=== PATIENT | female | born 1955 | race Caucasian/White ===

== ENCOUNTER 2016-06-26 12:30 | Inpatient (IN) | payer BC, OTHER ==
[~2016-06-26] VITALS: Ht 157.5 cm; Wt 79.3 kg
[2016-06-26] MEDS ORDERED: SODIUM CHLORIDE 0.9% 1,000 ML IVB ONE (14:32)
[2016-06-26 15:04] LABS: Hematocrit 40.4 % (36.0-46.0); Hemoglobin 13.4 g/dL (12.2-16.2); Mean Corpuscular Hemoglobin 27.3 pg (28.0-32.0); Mean Corpuscular Hgb Conc. 33.1 g/dL (32.0-36.0); Mean Corpuscular Volume 82.6 fL (80.0-100.0); Mean Platelet Volume 6.9 fL (7.4-10.4); Platelet Count (auto) 436 10^3/uL (140-450); Red Cell Distribution Width 16.3 % (11.6-16.0); SUSPECT VIEW TRANSMISSION; White Blood Cell 15.6 10^3/uL (4.4-10.8)
[2016-06-26 15:11] LABS: Metamyelocytes % 0; Myelocytes % 0; Promyelocytes % 0; Reactive Lymphocytes 0
[2016-06-26 15:19] LABS: Amylase 50 U/L (25-115); INR 0.95 (0.9-1.15); Partial Thromboplastin Time 27.4 sec (22.64-33.71); Prothrombin Time 10.3 sec (9.37-12.3)
[2016-06-26 15:27] LABS: Albumin 2.8 g/dL (3.4-5.0); BUN/Creatinine Ratio 19.8; Bilirubin, Total 0.4 mg/dL (0.2-1.0); Calcium 8.5 mg/dL (8.5-10.1); Magnesium 2.2 mg/dL (1.6-2.6); Potassium 3.5 mmol/L (3.5-5.1); Total Protein 6.7 g/dL (6.4-8.2)
[2016-06-26] MEDS ORDERED: MORPHINE SULF INJ 2 MG/ML SYRINGE 1ML IV ONE (15:30)
[2016-06-26] MEDS ORDERED: PROMETHAZINE HCL 25 MG/ML 1ML IV ONE (15:30)
[2016-06-26 15:43] LABS: Anisocytosis Slight; Platelet Estimate Adequate
[2016-06-26] MEDS ORDERED: metroNIDAZOLE 500MG/100ML 100 ML IV ONE (17:45)
[2016-06-26] MEDS ORDERED: NITROGLYCERIN 0.4 MG SL TAB SL PRN (17:45)
[2016-06-26] MEDS ORDERED: SODIUM CHLORIDE 0.9% 1,000 ML IV ONE (17:45)
[2016-06-26] MEDS ORDERED: MORPHINE SULF INJ 2 MG/ML SYRINGE 1ML IV PRN (17:45)
[2016-06-26] MEDS: ONDANSETRON HCL 4 MG/2 ML VIAL IV SCH (18:00)
[2016-06-26] MEDS: MORPHINE SULF INJ 2 MG/ML SYRINGE 1ML IV SCH (18:00)
[2016-06-26] MEDS: cefTRIAXone 1GM/50ML D5W 50 ML IV SCH (18:05)
[2016-06-26 21:15] VITALS: BP 117/67
[2016-06-26 22:00] VITALS: BP 117/67
[2016-06-27] MEDS: MORPHINE SULF INJ 2 MG/ML SYRINGE 1ML IV SCH ×3 (02:00→10:00)
[2016-06-27 05:00] VITALS: BP 110/65
[2016-06-27] MEDS: metroNIDAZOLE 500MG/100ML 100 ML IV SCH ×3 (05:07→21:43)
[2016-06-27] MEDS: ONDANSETRON HCL 4 MG/2 ML VIAL IV SCH ×4 (06:00→15:45)
[2016-06-27 07:37] LABS: Basophils # (auto) 0 uL; Basophils % (auto) 0.7 % (0.0-2.0); Eosinophils # (auto) 0.2 uL; Eosinophils % (auto) 3.2 % (0.0-7.0); Hematocrit 34.9 % (36.0-46.0); Hemoglobin 11.2 g/dL (12.2-16.2); Lymphocytes % (auto) 17.8 % (10.0-50.0); Mean Corpuscular Hemoglobin 27.1 pg (28.0-32.0); Mean Corpuscular Hgb Conc. 32.2 g/dL (32.0-36.0); Mean Corpuscular Volume 84.2 fL (80.0-100.0); Mean Platelet Volume 7.9 fL (7.4-10.4); Monocytes # (auto) 0.4 uL; Monocytes % (auto) 7.3 % (0.0-12.0); Neutrophils # (auto) 3.9 uL; Platelet Count (auto) 373 10^3/uL (140-450); Red Cell Distribution Width 16.5 % (11.6-16.0); White Blood Cell 5.5 10^3/uL (4.4-10.8)
[2016-06-27 08:00] VITALS: BP 122/66
[2016-06-27 08:36] LABS: Albumin 2.3 g/dL (3.4-5.0); BUN/Creatinine Ratio 20.7; Bilirubin, Total 0.4 mg/dL (0.2-1.0); Calcium 8.2 mg/dL (8.5-10.1); Potassium 3.3 mmol/L (3.5-5.1); Total Protein 5.7 g/dL (6.4-8.2)
[2016-06-27] MEDS: cefTRIAXone 1GM/50ML D5W 50 ML IV SCH (10:30)
[2016-06-27] MEDS: SOD CHL 0.45% 1,000 ML IV SCH (10:30)
[2016-06-27 13:00] VITALS: BP 125/60
[2016-06-27] MEDS ORDERED: HYDROmorphone HCL 2 MG/ML VL IV PRN (14:45)
[2016-06-27 17:00] VITALS: BP 158/81
[2016-06-27 20:00] VITALS: BP 116/69
[2016-06-27 22:00] VITALS: BP 116/69
[2016-06-28 04:58] LABS: Urine Bilirubin Negative (Negative); Urine Color Yellow (Yellow); Urine Glucose Normal (Normal); Urine Mucus FEW (None Seen); Urine Nitrite Negative (Negative); Urine RBC 158 /hpf (0 - 4); Urine Squamous Epithelial Cell FEW /hpf (<5); Urine Urobilinogen Normal (Negative); Urine pH 5.5 (5.0-8.0)
[2016-06-28 04:59] LABS: Urine Blood 2+ /uL (Negative); Urine Ketone 3+ (Negative)
[2016-06-28 05:00] VITALS: BP 127/69
[2016-06-28] MEDS: metroNIDAZOLE 500MG/100ML 100 ML IV SCH (05:15)
[2016-06-28] MEDS: SOD CHL 0.45% 1,000 ML IV SCH (06:00)
[2016-06-28] MEDS: ONDANSETRON HCL 4 MG/2 ML VIAL IV SCH ×2 (06:00)
[2016-06-28 06:15] LABS: Basophils # (auto) 0 uL; Basophils % (auto) 0.6 % (0.0-2.0); Eosinophils # (auto) 0.1 uL; Eosinophils % (auto) 1.6 % (0.0-7.0); Hematocrit 36.5 % (36.0-46.0); Hemoglobin 11.9 g/dL (12.2-16.2); Lymphocytes # (auto) 0.9 uL; Lymphocytes % (auto) 13.8 % (10.0-50.0); Mean Corpuscular Hemoglobin 27.5 pg (28.0-32.0); Mean Corpuscular Hgb Conc. 32.5 g/dL (32.0-36.0); Mean Corpuscular Volume 84.6 fL (80.0-100.0); Monocytes # (auto) 0.3 uL; Monocytes % (auto) 4.2 % (0.0-12.0); Neutrophils # (auto) 5.4 uL; Neutrophils % (auto) 79.8 % (37.0-80.0); Platelet Count (auto) 379 10^3/uL (140-450); Red Cell Distribution Width 16.1 % (11.6-16.0); White Blood Cell 6.8 10^3/uL (4.4-10.8)
[2016-06-28 06:40] LABS: Albumin 2.3 g/dL (3.4-5.0); BUN/Creatinine Ratio 17.4; Calcium 7.9 mg/dL (8.5-10.1)
[2016-06-28 06:43] LABS: Bilirubin, Total 0.5 mg/dL (0.2-1.0); Total Protein 5.8 g/dL (6.4-8.2)
[2016-06-28 06:44] LABS: Potassium 2.9 mmol/L (3.5-5.1)
[2016-06-28] MEDS ORDERED: POTASSIUM CHL 20 Meq TABLET PO ONE ×2 (07:15→07:30)
[2016-06-28 09:00] VITALS: BP 133/75
[2016-06-28] MEDS: cefTRIAXone 1GM/50ML D5W 50 ML IV SCH (10:00)
[2016-06-28 10:46] VITALS: BP 133/75
== END 2016-06-28 11:35 | disposition home or self-care (01) | DRG 386 ==
LOC: EDBD 12:30 → ER 12:30 → TELE 12:31 → TELE-WESTW 21:19
PROVIDERS: ADMIT Internal Medicine; ATTEND Internal Medicine
DX: K50.80 Crohn's disease of both small and large intestine without complications (principal); N13.2 Hydronephrosis with renal and ureteral calculous obstruction; E87.6 Hypokalemia; Z82.49 Family history of ischemic heart disease and other diseases of the circulatory system; Z87.442 Personal history of urinary calculi; Z90.49 Acquired absence of other specified parts of digestive tract; Z90.710 Acquired absence of both cervix and uterus; Z88.2 Allergy status to sulfonamides
CPT/HCPCS: 36415; 71010; 74176; 80053; 81001; 82150; 83690; 83735; 84484; 85007; 85025; 85027; 85610; 85730; 93005; 94761; 96361; 96365; 96375; J0696; J2405; J3490

== ENCOUNTER → 2018-02-19 | Outpatient (CLI) | payer OTHER ==
[2018-02-19 10:35] LABS: Basophils # (auto) 0.1 uL; Basophils % (auto) 0.5 % (0.0-2.0); Eosinophils # (auto) 0.1 uL; Eosinophils % (auto) 1.5 % (0.0-7.0); Hematocrit 41.5 % (36.0-46.0); Hemoglobin 13.4 g/dL (12.2-16.2); Lymphocytes # (auto) 1.1 uL; Lymphocytes % (auto) 11.7 % (10.0-50.0); Mean Corpuscular Hemoglobin 27.9 pg (28.0-32.0); Mean Corpuscular Hgb Conc. 32.3 g/dL (32.0-36.0); Mean Corpuscular Volume 86.2 fL (80.0-100.0); Monocytes # (auto) 0.7 uL; Monocytes % (auto) 7.1 % (0.0-12.0); Neutrophils # (auto) 7.5 uL; Neutrophils % (auto) 79.2 % (37.0-80.0); Nucleated Red Blood Cells % 0.1 %; Platelet Count (auto) 374 10^3/uL (140-450); Red Blood Cells 4.81 10^6/uL (4.0-5.20); Red Cell Distribution Width 15.8 % (11.8-14.3); White Blood Cell 9.5 10^3/uL (4.4-10.8)
[2018-02-19 11:39] LABS: Anion Gap 6 (5-15); Blood Urea Nitrogen 14 mg/dL (7-18); Carbon Dioxide 28 mmol/L (21-32); Chloride 109 mmol/L (98-107); Potassium 3.5 mmol/L (3.5-5.1); Sodium 143 mmol/L (136-145)
[2018-02-19 11:44] LABS: Alanine Aminotransferase 13 U/L (13-56); Albumin 2.3 g/dL (3.4-5.0); Alkaline Phosphatase 138 U/L (45-117); Aspartate Aminotransferase 9 U/L (15-37); BUN/Creatinine Ratio 21.2; Bilirubin, Total 0.4 mg/dL (0.2-1.0); GFR African American > 60 mL/min; GFR Non-African American > 60 mL/min; Glucose 135 mg/dL (74-106); Total Protein 6.2 g/dL (6.4-8.2)
== END | disposition home or self-care (01) ==
LOC: LAB 08:59
PROVIDERS: ATTEND Internal Medicine Gastroenterology
DX: R10.9 Unspecified abdominal pain (principal)
CPT/HCPCS: 36415; 80053; 85025

== ENCOUNTER 2018-03-05 14:31 | Inpatient (IN) | payer OTHER | END 2018-03-10 19:09 | disposition home or self-care (01) | LOC: ER 14:31 → OVERFLOW 23:23 → WEST WING 23:56 | DX: A41.9 Sepsis, unspecified organism (principal); N17.0 Acute kidney failure with tubular necrosis; N39.0 Urinary tract infection, site not specified; E44.0 Moderate protein-calorie malnutrition; E07.9 Disorder of thyroid, unspecified; E87.6 Hypokalemia; F10.20 Alcohol dependence, uncomplicated; I12.9 Hypertensive chronic kidney disease with stage 1 through stage 4 chronic kidney disease, or unspecified chronic kidney disease; N18.9 Chronic kidney disease, unspecified; Z82.49 Family history of ischemic heart disease and other diseases of the circulatory system; Z87.442 Personal history of urinary calculi; E88.09 Other disorders of plasma-protein metabolism, not elsewhere classified; E86.0 Dehydration ==

== ENCOUNTER → 2018-03-27 | Outpatient (CLI) | payer OTHER ==
[~2018-03-27] MED LIST: PROBCAP12 OR; SACC1CAP3 PO
== END | disposition home or self-care (01) ==
LOC: LAB 09:24
PROVIDERS: ATTEND Internal Medicine Gastroenterology
CPT/HCPCS: 36415; 82565; 84520

== ENCOUNTER → 2018-04-16 | Outpatient (CLI) | payer OTHER ==
[2018-04-16 08:06] LABS: Basophils # (auto) 0.1 uL; Basophils % (auto) 0.5 % (0.0-2.0); Eosinophils # (auto) 0.1 uL; Eosinophils % (auto) 0.9 % (0.0-7.0); Hemoglobin 13.1 g/dL (12.2-16.2); Lymphocytes # (auto) 1.3 uL; Lymphocytes % (auto) 11.6 % (10.0-50.0); Mean Corpuscular Hemoglobin 28.2 pg (28.0-32.0); Mean Corpuscular Hgb Conc. 31.9 g/dL (32.0-36.0); Mean Corpuscular Volume 88.5 fL (80.0-100.0); Monocytes # (auto) 0.7 uL; Monocytes % (auto) 6.1 % (0.0-12.0); Neutrophils # (auto) 8.7 uL; Neutrophils % (auto) 80.9 % (37.0-80.0); Platelet Count (auto) 314 10^3/uL (140-450); Red Blood Cells 4.64 10^6/uL (4.0-5.20); Red Cell Distribution Width 17.1 % (11.8-14.3); White Blood Cell 10.8 10^3/uL (4.4-10.8)
== END | disposition home or self-care (01) ==
LOC: LAB 07:52
PROVIDERS: ATTEND Internal Medicine Gastroenterology
DX: K50.80 Crohn's disease of both small and large intestine without complications (principal)
CPT/HCPCS: 36415; 85025

== ENCOUNTER → 2018-05-07 | Outpatient (CLI) | payer OTHER ==
[2018-05-07 08:34] LABS: Basophils # (auto) 0.1 uL; Basophils % (auto) 0.9 % (0.0-2.0); Eosinophils # (auto) 0.1 uL; Eosinophils % (auto) 1.8 % (0.0-7.0); Hematocrit 40.2 % (36.0-46.0); Hemoglobin 13.1 g/dL (12.2-16.2); Lymphocytes # (auto) 1.2 uL; Lymphocytes % (auto) 17.2 % (10.0-50.0); Mean Corpuscular Hemoglobin 28.2 pg (28.0-32.0); Mean Corpuscular Hgb Conc. 32.6 g/dL (32.0-36.0); Mean Corpuscular Volume 86.6 fL (80.0-100.0); Monocytes # (auto) 0.5 uL; Monocytes % (auto) 7.4 % (0.0-12.0); Neutrophils # (auto) 5.1 uL; Neutrophils % (auto) 72.7 % (37.0-80.0); Platelet Count (auto) 381 10^3/uL (140-450); Red Blood Cells 4.64 10^6/uL (4.0-5.20); Red Cell Distribution Width 15.4 % (11.8-14.3)
[2018-05-07 08:41] LABS: Albumin 2.8 g/dL (3.4-5.0); Calcium 8.8 mg/dL (8.5-10.1); Potassium 3.3 mmol/L (3.5-5.1)
[2018-05-07 08:49] LABS: Bilirubin, Total 0.4 mg/dL (0.2-1.0); Total Protein 6.5 g/dL (6.4-8.2)
== END | disposition home or self-care (01) ==
LOC: LAB 07:52
PROVIDERS: ATTEND Internal Medicine
DX: Z00.00 Encounter for general adult medical examination without abnormal findings (principal); K50.90 Crohn's disease, unspecified, without complications
CPT/HCPCS: 36415; 80053; 80061; 82306; 84443; 85025; 85652

== ENCOUNTER → 2018-05-18 | Outpatient (CLI) | payer OTHER ==
[2018-05-18 10:09] LABS: Free T4 (Free Thyroxine) 2.08 ng/dL (0.89-1.76); T3 Total 1.21 ng/mL (0.60-1.81)
[2018-05-18 10:10] LABS: Free T3 3.71 pg/mL (2.3-4.2)
== END | disposition home or self-care (01) ==
LOC: LAB 08:49
PROVIDERS: ATTEND Internal Medicine
DX: E03.9 Hypothyroidism, unspecified (principal); E05.90 Thyrotoxicosis, unspecified without thyrotoxic crisis or storm
CPT/HCPCS: 36415; 84439; 84443; 84480; 84481

== ENCOUNTER → 2018-06-08 | Outpatient (CLI) | payer OTHER ==
[~2018-06-08] MED LIST changes: +CHOL20007 PO; +MULT-228 PO; +USTE1INJ SC
[2018-06-08 11:39] LABS: Basophils # (auto) 0 uL; Basophils % (auto) 0.2 % (0.0-2.0); Eosinophils # (auto) 0 uL; Eosinophils % (auto) 0.3 % (0.0-7.0); Hematocrit 37.6 % (36.0-46.0); Hemoglobin 12.3 g/dL (12.2-16.2); Lymphocytes # (auto) 0.6 uL; Lymphocytes % (auto) 5.7 % (10.0-50.0); Mean Corpuscular Hemoglobin 27.8 pg (28.0-32.0); Mean Corpuscular Hgb Conc. 32.7 g/dL (32.0-36.0); Monocytes # (auto) 0.1 uL; Monocytes % (auto) 1.3 % (0.0-12.0); Neutrophils # (auto) 9.7 uL; Neutrophils % (auto) 92.5 % (37.0-80.0); Nucleated Red Blood Cells % 0.1 %; Platelet Count (auto) 447 10^3/uL (140-450); Red Blood Cells 4.43 10^6/uL (4.0-5.20); Red Cell Distribution Width 14.7 % (11.8-14.3); White Blood Cell 10.5 10^3/uL (4.4-10.8)
[2018-06-11 14:24] LABS: Free T4 (Free Thyroxine) 2.17 ng/dL (0.89-1.76)
[2018-06-11 14:25] LABS: T3 Total 0.82 ng/mL (0.60-1.81)
== END | disposition home or self-care (01) ==
LOC: LAB 10:33
PROVIDERS: ATTEND Internal Medicine
DX: K50.80 Crohn's disease of both small and large intestine without complications (principal); E05.90 Thyrotoxicosis, unspecified without thyrotoxic crisis or storm
CPT/HCPCS: 36415; 84439; 84443; 84480; 85025

== ENCOUNTER → 2018-06-13 | Outpatient (CLI) | payer OTHER | END | disposition home or self-care (01) | LOC: LAB 09:33 | PROVIDERS: ATTEND Internal Medicine Gastroenterology | DX: K50.80 Crohn's disease of both small and large intestine without complications (principal) | CPT/HCPCS: 82705 ==

== ENCOUNTER → 2018-08-31 | Day surgery (SDC) | payer OTHER ==
[2018-08-28 14:05] LABS: Basophils # (auto) 0 uL; Basophils % (auto) 0.2 % (0.0-2.0); Eosinophils # (auto) 0.3 uL; Eosinophils % (auto) 2.7 % (0.0-7.0); Hematocrit 38.7 % (36.0-46.0); Hemoglobin 12.6 g/dL (12.2-16.2); Lymphocytes # (auto) 1.5 uL; Lymphocytes % (auto) 14.7 % (10.0-50.0); Mean Corpuscular Hemoglobin 26.7 pg (28.0-32.0); Mean Corpuscular Hgb Conc. 32.7 g/dL (32.0-36.0); Mean Corpuscular Volume 81.9 fL (80.0-100.0); Monocytes # (auto) 0.7 uL; Monocytes % (auto) 7.2 % (0.0-12.0); Neutrophils # (auto) 7.4 uL; Neutrophils % (auto) 75.2 % (37.0-80.0); Platelet Count (auto) 390 10^3/uL (140-450); Red Blood Cells 4.73 10^6/uL (4.0-5.20); Red Cell Distribution Width 16.5 % (11.8-14.3); White Blood Cell 9.9 10^3/uL (4.4-10.8)
[2018-08-28 14:43] LABS: INR 0.97 (0.9-1.15); Partial Thromboplastin Time 27.4 sec (23.64-32.05)
[~2018-08-31] VITALS: Ht 157.5 cm; Wt 80.3 kg
[~2018-08-31] MED LIST changes: +POTA99TA3 PO; -PROBCAP12 OR; -SACC1CAP3 PO; +SODIUM CHLORIDE LOCK 10 ML ONE; +diphenhdrAMINE HCL 50 MG/1 ML VL ONE
[2018-08-31] MEDS: fentaNYL CITRATE 100 MCG/2 ML VL ONE ×2 (11:33→11:38)
[2018-08-31] MEDS: MIDAZOLAM HCL 5 MG/ML-1ML VIAL ONE ×2 (11:33→11:38)
[2018-08-31 12:29] VITALS: BP 128/69
== END | disposition home or self-care (01) ==
LOC: GI 09:30
PROVIDERS: ATTEND Internal Medicine Gastroenterology
DX: K63.89 Other specified diseases of intestine (principal); K50.80 Crohn's disease of both small and large intestine without complications; Z88.8 Allergy status to other drugs, medicaments and biological substances; Z88.2 Allergy status to sulfonamides; Z79.899 Other long term (current) drug therapy; Z98.890 Other specified postprocedural states; Z90.710 Acquired absence of both cervix and uterus; Z90.49 Acquired absence of other specified parts of digestive tract
CPT/HCPCS: 36415; 45380; 85025; 85610; 85730; 88305; J1200; J2250; J3010; J7030; 99152

== ENCOUNTER → 2018-09-10 | Outpatient (CLI) | payer OTHER ==
[~2018-09-10] MED LIST changes: -SODIUM CHLORIDE LOCK 10 ML ONE; -diphenhdrAMINE HCL 50 MG/1 ML VL ONE
[2018-09-10 09:45] LABS: Free T4 (Free Thyroxine) 1.8 ng/dL (0.89-1.76)
[2018-09-10 09:46] LABS: Free T3 3.07 pg/mL (2.3-4.2); T3 Total 1.32 ng/mL (0.60-1.81)
== END | disposition home or self-care (01) ==
LOC: LAB 07:16
PROVIDERS: ATTEND Internal Medicine
DX: E05.90 Thyrotoxicosis, unspecified without thyrotoxic crisis or storm (principal)
CPT/HCPCS: 36415; 84439; 84443; 84480; 84481

== ENCOUNTER → 2019-01-14 | Outpatient (CLI) | payer OTHER ==
[~2019-01-14] VITALS: Ht 157.5 cm; Wt 79.4 kg
[~2019-01-14] MED LIST changes: +ACE325T PO; -CHOL20007 PO; +LISI-275 PO; -MULT-228 PO; +ONDA-144 PO; +PANT40T PO; +POTA10TA51 PO; -POTA99TA3 PO; +PRE5T PO; -USTE1INJ SC
== END | disposition home or self-care (01) ==
LOC: Rad HDHVI 08:02
PROVIDERS: ATTEND Internal Medicine Cardiovascular Disease
DX: I08.1 Rheumatic disorders of both mitral and tricuspid valves (principal); I27.20 Pulmonary hypertension, unspecified; I20.0 Unstable angina; R06.02 Shortness of breath; R07.89 Other chest pain; I10 Essential (primary) hypertension
CPT/HCPCS: 78452; 93017; 93306; 96374; A9500

== ENCOUNTER → 2019-03-20 | Outpatient (CLI) | payer OTHER ==
[~2019-03-20] MED LIST changes: -ACE325T PO; +CALC600T80 PO; +CIP500T PO; +CLIN-188 PO; +CYAN1TAB14 PO; +FOLI1TAB6 PO; +HYOS0.1250 PO; +METH4TAB PO; +POTA-220 PO; -POTA10TA51 PO; -PRE5T PO; +[UNRECOGNIZED DRUG - CODE] PO
[2019-03-20 09:09] LABS: Basophils # (auto) 0.1 uL; Basophils % (auto) 0.7 % (0.0-2.0); Eosinophils # (auto) 0.2 uL; Eosinophils % (auto) 2.8 % (0.0-7.0); Hematocrit 38.8 % (36.0-46.0); Hemoglobin 12.6 g/dL (12.2-16.2); Lymphocytes # (auto) 1.2 uL; Lymphocytes % (auto) 15.4 % (10.0-50.0); Mean Corpuscular Hemoglobin 27.5 pg (28.0-32.0); Mean Corpuscular Hgb Conc. 32.5 g/dL (32.0-36.0); Mean Corpuscular Volume 84.7 fL (80.0-100.0); Monocytes # (auto) 0.4 uL; Monocytes % (auto) 5.5 % (0.0-12.0); Neutrophils # (auto) 5.6 uL; Neutrophils % (auto) 75.6 % (37.0-80.0); Platelet Count (auto) 310 10^3/uL (140-450); Red Blood Cells 4.58 10^6/uL (4.0-5.20); Red Cell Distribution Width 15.8 % (11.8-14.3); White Blood Cell 7.5 10^3/uL (4.4-10.8)
== END | disposition home or self-care (01) ==
LOC: LAB 08:39
PROVIDERS: ATTEND Internal Medicine Gastroenterology
DX: K50.80 Crohn's disease of both small and large intestine without complications (principal)
CPT/HCPCS: 36415; 85025

== ENCOUNTER → 2019-04-19 | Outpatient (CLI) | payer OTHER ==
[2019-04-19 11:02] LABS: Potassium 2.8 mmol/L (3.5-5.1)
== END | disposition home or self-care (01) ==
LOC: LAB 10:15
PROVIDERS: ATTEND Internal Medicine
DX: E87.6 Hypokalemia (principal)
CPT/HCPCS: 36415; 80051

== ENCOUNTER 2019-04-20 12:32 | Emergency (ER) | payer OTHER ==
[~2019-04-20] VITALS: Ht 157.5 cm; Wt 77.1 kg
[2019-04-20 13:22] VITALS: BP 150/69
[2019-04-20] MEDS ORDERED: KETOROLAC TROMETH 60MG/2ML VIAL IM ONE (15:15)
== END 2019-04-20 15:46 | disposition home or self-care (01) ==
LOC: ER 12:40
DX: S70.12XA Contusion of left thigh, initial encounter (principal); J45.909 Unspecified asthma, uncomplicated; I10 Essential (primary) hypertension; Z88.2 Allergy status to sulfonamides; Z88.6 Allergy status to analgesic agent; Z79.899 Other long term (current) drug therapy; Z87.442 Personal history of urinary calculi; Z90.49 Acquired absence of other specified parts of digestive tract; Z90.710 Acquired absence of both cervix and uterus; Z98.890 Other specified postprocedural states; W18.39XA Other fall on same level, initial encounter; Y93.89 Activity, other specified; Y92.89 Other specified places as the place of occurrence of the external cause; Y99.8 Other external cause status
CPT/HCPCS: 93971; 96372; 99284; J1885

== ENCOUNTER → 2019-06-12 | Outpatient (CLI) | payer OTHER ==
[2019-06-12 10:32] LABS: Basophils # (auto) 0.1 10 ^3/uL (0-0.2); Eosinophils # (auto) 0.1 10 ^3/uL (0-0.8); Eosinophils % (auto) 1.1 % (0.0-7.0); Hematocrit 37.2 % (36.0-46.0); Lymphocytes # (auto) 0.9 10 ^3/uL (0.4-5.4); Mean Corpuscular Hgb Conc. 32.2 g/dL (32.0-36.0); Mean Corpuscular Volume 86.9 fL (80.0-100.0); Monocytes # (auto) 0.4 10 ^3/uL (0-1.3); Monocytes % (auto) 4.1 % (0.0-12.0); Neutrophils # (auto) 8.5 10 ^3/uL (1.6-8.6); Neutrophils % (auto) 84.8 % (37.0-80.0); Nucleated Red Blood Cells % 0.1 %; Platelet Count (auto) 353 10^3/uL (140-450); Red Blood Cells 4.28 10^6/uL (4.0-5.20); Red Cell Distribution Width 16.3 % (11.8-14.3)
[2019-06-12 10:54] LABS: Calcium 8.5 mg/dL (8.5-10.1); Potassium 4.2 mmol/L (3.5-5.1)
[2019-06-12 11:00] LABS: Albumin 2.8 g/dL (3.4-5.0); Bilirubin, Total 0.3 mg/dL (0.2-1.0); Total Protein 6.7 g/dL (6.4-8.2)
== END | disposition home or self-care (01) ==
LOC: LAB 10:07
PROVIDERS: ATTEND Internal Medicine Gastroenterology
DX: K50.90 Crohn's disease, unspecified, without complications (principal)
CPT/HCPCS: 36415; 80053; 85025

== ENCOUNTER 2019-07-30 07:44 | Inpatient (IN) | payer OTHER ==
[~2019-07-30] VITALS: Ht 157.5 cm; Wt 79.8 kg
[~2019-07-30 07:44] MED LIST changes: +[UNRECOGNIZED DRUG - CODE] PO; -[UNRECOGNIZED DRUG - CODE] PO
[2019-07-30] MEDS ORDERED: SODIUM CHLORIDE 0.9% 500 ML IVB ONE (07:58)
[2019-07-30] MEDS ORDERED: PANTOPRAZOLE 40 MG/10 ML VIAL INJ IV STA (07:58)
[2019-07-30] MEDS ORDERED: methylPREDNISolone SOD SUCC 125 MG/2 ML VL IV ONE (08:00)
[2019-07-30] MEDS ORDERED: MORPHINE SULFATE 4 MG/ML SYR/VIAL IV ONE (08:00)
[2019-07-30] MEDS ORDERED: ONDANSETRON HCL 4 MG/2 ML VIAL IV ONE (08:00)
[2019-07-30 08:44] LABS: Basophils # (auto) 0 10 ^3/uL (0-0.2); Basophils % (auto) 0.5 % (0.0-2.0); Eosinophils # (auto) 0 10 ^3/uL (0-0.8); Eosinophils % (auto) 0.5 % (0.0-7.0); Hematocrit 40.4 % (36.0-46.0); Hemoglobin 13.1 g/dL (12.2-16.2); Lymphocytes # (auto) 0.9 10 ^3/uL (0.4-5.4); Mean Corpuscular Hgb Conc. 32.3 g/dL (32.0-36.0); Mean Corpuscular Volume 83.4 fL (80.0-100.0); Monocytes # (auto) 0.6 10 ^3/uL (0-1.3); Monocytes % (auto) 6.2 % (0.0-12.0); Neutrophils # (auto) 7.6 10 ^3/uL (1.6-8.6); Neutrophils % (auto) 82.8 % (37.0-80.0); Platelet Count (auto) 419 10^3/uL (140-450); Red Blood Cells 4.85 10^6/uL (4.0-5.20); Red Cell Distribution Width 16.1 % (11.8-14.3); White Blood Cell 9.2 10^3/uL (4.4-10.8)
[2019-07-30 08:58] LABS: Albumin 2.7 g/dL (3.4-5.0); BUN/Creatinine Ratio 28.1; Calcium 8.1 mg/dL (8.5-10.1); Potassium 3.3 mmol/L (3.5-5.1)
[2019-07-30 09:00] LABS: Bilirubin, Total 0.6 mg/dL (0.2-1.0); Total Protein 6.9 g/dL (6.4-8.2)
[2019-07-30] MEDS ORDERED: MORPHINE SULF INJ 2 MG/ML SYRINGE 1ML IV PRN ×2 (12:00)
[2019-07-30] MEDS ORDERED: NITROGLYCERIN 0.4 MG SL TAB SL PRN (12:00)
[2019-07-30] MEDS ORDERED: ONDANSETRON HCL 4 MG/2 ML VIAL IV PRN (12:00)
[2019-07-30 13:52] LABS: Urine Bacteria NONE SEEN /hpf (None Seen); Urine Blood Negative /uL (Negative); Urine Mucus FEW (None Seen); Urine Specific Gravity 1.025 (1.001-1.035); Urine WBC 2 /hpf (0 - 5)
--- NOTE | 2019-07-30 14:25 | NUR ---
M/S admit from ER JUAN J WELLS admitted to Telemetry unit, no SBAR received. Patient oriented to FATOU HENDERSON RN primary RN, unit, room, bed, and unit policies regarding patient care. Patient is on room air, respirations even and unlabored. Patient denies pain at this time. Patient is awake, alert and oriented x4. No signs or symptoms of distress noted at this time. Reviewed plan of care with patient, patient verbalized understanding. Bed in low and locked position, call light within reach. Will continue to monitor Q1 hour and PRN.
--- NOTE | 2019-07-30 14:50 | NUR ---
Patient ambulated Patient ambulated to restroom unassisted. Will continue to monitor Q1 hour and PRN.
[2019-07-30] MEDS: D5W/SOD CHL 0.45%/KCL 20MEQ 1,000 ML IV SCH ×2 (16:10→22:00)
--- NOTE | 2019-07-30 16:30 | NUR ---
Dr. Jessica Wynn at station New orders received for small bowel series tomorrow morning. Will place new orders, will continue to monitor Q1 hour and PRN.
[2019-07-30 17:00] VITALS: BP 126/73
--- NOTE | 2019-07-30 18:43 | NUR ---
IV Removed IV removed with clean sterile technique from left forearm, catheter fully intact. Pressure dressing applied to site. Patient tolerated well. Patient provided ice pack. Will continue to monitor Q1 hour and PRN.
--- NOTE | 2019-07-30 19:05 | NUR ---
Closing Note Report given to rn night RN. No signs or symptoms of distress noted at this time.
--- NOTE | 2019-07-30 19:11 | NUR ---
Opening Shift Note Assumed care of patient after receiving report from day RN. Patient awake and alert with no S/S of distress/SOB or pain. Call light within reach, bed in lowest position x2 side rails, HOB semi fowlers. Instructed on POC and to call for assist PRN, will continue to monitor for changes Q1hr and PRN.
[2019-07-30 22:00] VITALS: BP 119/68
[2019-07-30] MEDS: methylPREDNISolone SOD SUCC 40 MG/ML VL IV SCH (22:00)
--- NOTE | 2019-07-30 22:00 | NUR ---
IV insertion IV access obtained, via clean sterile technique by inserting 22 gauge catheter at left forearm after 2 attempt(s). IV secured properly. No trauma to site. Patient tolerated well.
[2019-07-31 05:00] VITALS: BP 100/52
[2019-07-31 06:40] LABS: Basophils # (auto) 0 10 ^3/uL (0-0.2); Basophils % (auto) 0.4 % (0.0-2.0); Eosinophils # (auto) 0 10 ^3/uL (0-0.8); Hematocrit 36.3 % (36.0-46.0); Hemoglobin 11.6 g/dL (12.2-16.2); Lymphocytes # (auto) 0.5 10 ^3/uL (0.4-5.4); Lymphocytes % (auto) 7.4 % (10.0-50.0); Mean Corpuscular Hemoglobin 26.5 pg (28.0-32.0); Mean Corpuscular Hgb Conc. 31.9 g/dL (32.0-36.0); Mean Corpuscular Volume 83.1 fL (80.0-100.0); Monocytes # (auto) 0.1 10 ^3/uL (0-1.3); Monocytes % (auto) 2.3 % (0.0-12.0); Neutrophils # (auto) 5.6 10 ^3/uL (1.6-8.6); Neutrophils % (auto) 89.9 % (37.0-80.0); Platelet Count (auto) 368 10^3/uL (140-450); Red Blood Cells 4.36 10^6/uL (4.0-5.20); Red Cell Distribution Width 15.7 % (11.8-14.3); White Blood Cell 6.2 10^3/uL (4.4-10.8)
[2019-07-31 06:46] LABS: Potassium 3.5 mmol/L (3.5-5.1)
--- NOTE | 2019-07-31 07:12 | NUR ---
OPENING SHIFT NOTE Assumed care of patient from date night sitter RN. Patient is alert and oriented x4, no signs of distress noted. Patient was updated on the plan of care and verbalized understanding. Bed is locked, in the lowest position, side rails up x2, and call light is in reach. Patient was encouraged to call for assistance as needed.
[2019-07-31 07:17] LABS: Albumin 2.3 g/dL (3.4-5.0); BUN/Creatinine Ratio 19.6; Bilirubin, Total 0.4 mg/dL (0.2-1.0); Calcium 8.2 mg/dL (8.5-10.1); Magnesium 2.1 mg/dL (1.6-2.6); Total Protein 5.8 g/dL (6.4-8.2)
[2019-07-31] MEDS ORDERED: GASTROGRAFIN 120 ML SOL ONE (07:24)
[2019-07-31] MEDS: D5W/SOD CHL 0.45%/KCL 20MEQ 1,000 ML IV SCH ×2 (08:00→15:25)
[2019-07-31 09:00] VITALS: BP 110/58
--- NOTE | 2019-07-31 09:31 | NUR ---
PATIENT COMPLAINING OF PAIN AT IV SITE Attempted to flush with NS and patient complaining of pain. This RN, Helen, CHERYL, and charge nurse Jillian attempted to start IV with no success. Will input midline order and page PICC nurse.
--- NOTE | 2019-07-31 11:51 | NUR ---
MINE AT BEDSIDE Updated on patient status, plan of care was discussed with the patient and she verbalized understanding. No new orders received.
--- NOTE | 2019-07-31 12:16 | NUR ---
PICC NURSE PAGED To see when she would be able to obtain IV access, awaiting call back.
--- NOTE | 2019-07-31 12:41 | NUR ---
PICC RN AT BEDSIDE
[2019-07-31] MEDS: ENTOCORT 3 MG PO SCH (12:42)
[2019-07-31] MEDS: LISINOPRIL 5 MG TAB PO SCH (12:42)
[2019-07-31 13:00] VITALS: BP 137/74
[2019-07-31] MEDS: levoFLOXacin 500MG 100 ML IV SCH (13:31)
[2019-07-31] MEDS: PANTOPRAZOLE 40 MG/10 ML VIAL INJ IV SCH (13:32)
[2019-07-31] MEDS: methylPREDNISolone SOD SUCC 40 MG/ML VL IV SCH ×2 (13:32→21:20)
[2019-07-31] MEDS ORDERED: LISI-648 PO (14:09)
[2019-07-31] MEDS ORDERED: POTA-220 PO (14:13)
[2019-07-31] MEDS ORDERED: USTE1INJ IV (14:15)
[2019-07-31] MEDS ORDERED: CHOL100029 PO (14:17)
[2019-07-31] MEDS ORDERED: AZAT50TA6 PO (14:20)
[2019-07-31] MEDS ORDERED: CALC600T80 PO (14:22)
--- NOTE | 2019-07-31 15:43 | NUR ---
Segundo KENDRICK AT BEDSIDE updated on patient status, plan of care discussed with patient and she verbalized understanding. Per MD patient will be advanced to full liquid for dinner, puree diet tomorrow and possible DC tomorrow.
[2019-07-31 17:00] VITALS: BP 114/68
--- NOTE | 2019-07-31 19:18 | NUR ---
Opening Shift Note Assumed care of patient, awake and alert x 4. No S/S of distress/SOB or pain.Bed is in lowest position and locked. Call light within reach. Board updated. Instructed on POC and to call for assist PRN, will continue to monitor for changes Q1hr and PRN.
[2019-07-31 21:59] VITALS: BP 121/76
--- NOTE | 2019-07-31 22:03 | NUR ---
Paging hospitalist to request medication to help the patient sleep. She has been sleeping 3-4 hours the past two nights and cannot sleep with hospital environment.
--- NOTE | 2019-08-01 00:36 | NUR ---
Pagestephan hospitalist regarding positive blood culture (gram positive cocci in clusters). Addendum: 08/01/19 at 0037 by SYLVIA AGUILA RN Wrong patient. Disregard.
[2019-08-01] MEDS ORDERED: TEMAZEPAM 15 MG CAP PO ONE (01:15)
--- NOTE | 2019-08-01 01:22 | NUR ---
Spoke to RAIN Valencia. Order received: Temazepam 15 mg PO Once. Order repeated, verified, and placed.
[2019-08-01] MEDS: D5W/SOD CHL 0.45%/KCL 20MEQ 1,000 ML IV SCH ×2 (04:08→14:00)
[2019-08-01 05:00] VITALS: BP 124/57
--- NOTE | 2019-08-01 07:30 | NUR ---
OPENING SHIFT NOTE Assumed care of patient from maintenance supervisor 2nd shift RN. Patient is alert and oriented x4, no signs of distress noted. Patient was updated on the plan of care and verbalized understanding. Bed is locked, in the lowest position, side rails up x2, and call light is in reach. Patient was encouraged to call for assistance as needed.
[2019-08-01 08:50] VITALS: BP 130/75
--- NOTE | 2019-08-01 09:33 | NUR ---
MINE AT BEDSIDE updated on the patient status. patient was updated on the plan of care and verbalized understanding. Per MD patient is to be discharged today.
[2019-08-01] MEDS: ENTOCORT 3 MG PO SCH (10:00)
[2019-08-01] MEDS: levoFLOXacin 500MG 100 ML IV SCH (10:16)
[2019-08-01] MEDS: methylPREDNISolone SOD SUCC 40 MG/ML VL IV SCH (10:16)
[2019-08-01] MEDS: PANTOPRAZOLE 40 MG/10 ML VIAL INJ IV SCH (10:16)
[2019-08-01] MEDS: LISINOPRIL 5 MG TAB PO SCH (10:17)
--- NOTE | 2019-08-01 12:14 | NUR ---
IV insertion IV access obtained, via clean sterile technique by inserting 20 gauge catheter at left AC after 1 attempt. IV secured properly. No trauma to site. Patient tolerated well. IV to the right AC was discontinued with clean sterile technique and pressure dressing applied.
[2019-08-01 12:33] VITALS: BP 144/81
[2019-08-01 12:38] VITALS: BP 144/81
--- NOTE | 2019-08-01 16:00 | NUR ---
DISCHARGE Discharge instructions given as ordered. Encourage to follow up with PMD as instructed. All questions and concerns addressed. Patient verbalized understanding. Medication reconciliation form completed and copy given to patient. IV removed with catheter intact, pressure dressing applied. Patient taken to vehicle via wheelchair with all personal belongings, accompanied by staff. No distress noted at time of departure.
== END 2019-08-01 16:00 | disposition home or self-care (01) | DRG 386 ==
LOC: ER 07:44 → OVERFLOW 07:45 → CENTRAL 14:25
PROVIDERS: ADMIT Nurse Practitioner Acute Care; ATTEND Family Medicine
DX: K50.012 Crohn's disease of small intestine with intestinal obstruction (principal); K56.690 Other partial intestinal obstruction; E87.6 Hypokalemia; J45.909 Unspecified asthma, uncomplicated; I10 Essential (primary) hypertension; E78.5 Hyperlipidemia, unspecified; M51.37 Other intervertebral disc degeneration, lumbosacral region; Z79.51 Long term (current) use of inhaled steroids; Z79.899 Other long term (current) drug therapy; N20.0 Calculus of kidney; Z82.49 Family history of ischemic heart disease and other diseases of the circulatory system; Z87.442 Personal history of urinary calculi; Z90.49 Acquired absence of other specified parts of digestive tract; Z90.710 Acquired absence of both cervix and uterus; Z83.3 Family history of diabetes mellitus; Z88.2 Allergy status to sulfonamides
CPT/HCPCS: 36415; 74176; 74250; 80053; 81001; 83690; 83735; 85025; 93005; 96361; 96374; 96375; 96376; C9113; G0378; J1956; J2405

== ENCOUNTER 2019-11-07 06:21 | Emergency (ER) | payer OTHER ==
[~2019-11-07] VITALS: Ht 157.5 cm; Wt 76.7 kg
[~2019-11-07 06:21] MED LIST changes: +AZAT50TA6 PO; +CHOL100029 PO; -LISI-275 PO; +LISI-648 PO; +USTE1INJ IV
[2019-11-07] MEDS ORDERED: ONDANSETRON HCL 4 MG/2 ML VIAL IV ONE (07:45)
[2019-11-07] MEDS ORDERED: SODIUM CHLORIDE 0.9% 1,000 ML IV ONE ×2 (07:45)
[2019-11-07] MEDS ORDERED: MORPHINE SULFATE 4 MG/ML SYR/VIAL IV ONE (07:45)
[2019-11-07 07:52] LABS: Urine Bacteria FEW /hpf (None Seen); Urine Blood Negative /uL (Negative); Urine Mucus FEW (None Seen); Urine Specific Gravity 1.025 (1.001-1.035); Urine WBC 8 /hpf (0 - 5)
[2019-11-07 07:57] LABS: Basophils # (auto) 0.1 10 ^3/uL (0-0.2); Basophils % (auto) 0.9 % (0.0-2.0); Eosinophils # (auto) 0.2 10 ^3/uL (0-0.8); Hemoglobin 9.1 g/dL (12.2-16.2); Mean Corpuscular Hemoglobin 25.6 pg (28.0-32.0); Neutrophils % (auto) 74.2 % (37.0-80.0)
[2019-11-07 07:59] LABS: Eosinophils % (auto) 2.3 % (0.0-7.0); Hematocrit 27.7 % (36.0-46.0); Lymphocytes # (auto) 1.2 10 ^3/uL (0.4-5.4); Lymphocytes % (auto) 14.6 % (10.0-50.0); Mean Corpuscular Hgb Conc. 32.7 g/dL (32.0-36.0); Mean Corpuscular Volume 78.4 fL (80.0-100.0); Monocytes # (auto) 0.7 10 ^3/uL (0-1.3); Neutrophils # (auto) 6.3 10 ^3/uL (1.6-8.6); Platelet Count (auto) 293 10^3/uL (140-450); Red Blood Cells 3.53 10^6/uL (4.0-5.20); White Blood Cell 8.5 10^3/uL (4.4-10.8)
[2019-11-07 08:05] LABS: Albumin 2.6 g/dL (3.4-5.0); Calcium 8.5 mg/dL (8.5-10.1); Potassium 3.4 mmol/L (3.5-5.1)
[2019-11-07 08:08] LABS: Bilirubin, Total 0.3 mg/dL (0.2-1.0); Total Protein 6.3 g/dL (6.4-8.2)
[2019-11-07 10:46] VITALS: BP 119/62
== END 2019-11-07 10:20 | disposition home or self-care (01) ==
LOC: ER 06:21
DX: J18.9 Pneumonia, unspecified organism (principal); J45.909 Unspecified asthma, uncomplicated; Z90.49 Acquired absence of other specified parts of digestive tract; Z90.710 Acquired absence of both cervix and uterus; Z87.442 Personal history of urinary calculi
CPT/HCPCS: 36415; 71045; 74176; 80053; 81001; 83690; 85025; 93005; 96361; 96374; 96375; 99285; J2270; J2405; J7030

== ENCOUNTER → 2019-11-21 | Outpatient (CLI) | payer OTHER ==
[2019-11-21 14:33] LABS: Calcium 9.1 mg/dL (8.5-10.1); Potassium 3.9 mmol/L (3.5-5.1)
== END | disposition home or self-care (01) ==
LOC: LAB 13:56
PROVIDERS: ATTEND Internal Medicine
DX: E87.6 Hypokalemia (principal)
CPT/HCPCS: 36415; 80048

== ENCOUNTER → 2020-04-01 | Outpatient (CLI) | payer OTHER ==
[2020-04-01 07:41] LABS: Basophils # (auto) 0.1 10 ^3/uL (0-0.2); Eosinophils # (auto) 0.2 10 ^3/uL (0-0.8); Lymphocytes # (auto) 1.3 10 ^3/uL (0.4-5.4)
[2020-04-01 07:44] LABS: Basophils % (auto) 1.6 % (0.0-2.0); Eosinophils % (auto) 3.6 % (0.0-7.0); Hematocrit 31.4 % (36.0-46.0); Hemoglobin 10.3 g/dL (12.2-16.2); Lymphocytes % (auto) 21.2 % (10.0-50.0); Mean Corpuscular Hemoglobin 25.3 pg (28.0-32.0); Mean Corpuscular Hgb Conc. 32.7 g/dL (32.0-36.0); Mean Corpuscular Volume 77.2 fL (80.0-100.0); Monocytes # (auto) 0.3 10 ^3/uL (0-1.3); Monocytes % (auto) 5.4 % (0.0-12.0); Neutrophils # (auto) 4.3 10 ^3/uL (1.6-8.6); Neutrophils % (auto) 68.2 % (37.0-80.0); Nucleated Red Blood Cells % 0.2 %; Platelet Count (auto) 327 10^3/uL (140-450); Red Blood Cells 4.07 10^6/uL (4.0-5.20); Red Cell Distribution Width 19.2 % (11.8-14.3); White Blood Cell 6.3 10^3/uL (4.4-10.8)
[2020-04-01 07:46] LABS: Urine Bacteria FEW /hpf (None Seen); Urine Blood Negative /uL (Negative); Urine Mucus FEW (None Seen); Urine Specific Gravity 1.023 (1.001-1.035); Urine WBC 2 /hpf (0 - 5)
[2020-04-01 07:54] LABS: Albumin 2.9 g/dL (3.4-5.0); Calcium 8.3 mg/dL (8.5-10.1); Potassium 3.7 mmol/L (3.5-5.1)
[2020-04-01 07:58] LABS: BUN/Creatinine Ratio 25.9; Bilirubin, Total 0.3 mg/dL (0.2-1.0); Total Protein 7.1 g/dL (6.4-8.2)
== END | disposition home or self-care (01) ==
LOC: LAB 07:09
PROVIDERS: ATTEND Internal Medicine Gastroenterology
DX: K50.90 Crohn's disease, unspecified, without complications (principal); D64.9 Anemia, unspecified
CPT/HCPCS: 36415; 80053; 80061; 81001; 83036; 85025

== ENCOUNTER → 2020-05-22 | Outpatient (CLI) | payer OTHER ==
[2020-05-22 09:16] LABS: Basophils # (auto) 0.1 10 ^3/uL (0-0.2); Basophils % (auto) 0.9 % (0.0-2.0); Eosinophils # (auto) 0.2 10 ^3/uL (0-0.8); Eosinophils % (auto) 2.9 % (0.0-7.0); Hematocrit 38.1 % (36.0-46.0); Hemoglobin 12.6 g/dL (12.2-16.2); Lymphocytes # (auto) 1.1 10 ^3/uL (0.4-5.4); Lymphocytes % (auto) 15.1 % (10.0-50.0); Mean Corpuscular Hemoglobin 27.4 pg (28.0-32.0); Monocytes # (auto) 0.5 10 ^3/uL (0-1.3); Monocytes % (auto) 6.8 % (0.0-12.0); Neutrophils # (auto) 5.6 10 ^3/uL (1.6-8.6); Neutrophils % (auto) 74.3 % (37.0-80.0); Platelet Count (auto) 276 10^3/uL (140-450); Red Blood Cells 4.59 10^6/uL (4.0-5.20); White Blood Cell 7.6 10^3/uL (4.4-10.8)
[2020-05-22 09:41] LABS: % Iron Saturation 14.6 % (15-50)
[2020-05-22 11:08] LABS: Folate (Folic Acid) > 24.00 ng/mL (5.38-24)
== END | disposition home or self-care (01) ==
LOC: LAB 08:35
PROVIDERS: ATTEND Internal Medicine Gastroenterology
DX: D64.9 Anemia, unspecified (principal)
CPT/HCPCS: 36415; 82607; 82746; 83540; 83550; 85025

== ENCOUNTER → 2020-06-17 | Outpatient (CLI) | payer OTHER ==
[~2020-06-17] MED LIST changes: -LISI-648 PO; +LISI-716 PO
[2020-06-17 14:59] LABS: Potassium 3.6 mmol/L (3.5-5.1)
== END | disposition home or self-care (01) ==
LOC: LAB 14:23
PROVIDERS: ATTEND Internal Medicine
DX: E87.6 Hypokalemia (principal)
CPT/HCPCS: 36415; 80051

== ENCOUNTER → 2020-10-26 | Day surgery (SDC) | payer OTHER ==
[2020-10-22 10:02] LABS: Urine Bacteria FEW /hpf (None Seen); Urine Blood Negative /uL (Negative); Urine Mucus FEW (None Seen); Urine Specific Gravity 1.015 (1.001-1.035); Urine WBC 39 /hpf (0 - 5); Urine WBC Clumps PRESENT /hpf (None Seen)
[2020-10-22 10:04] LABS: Basophils # (auto) 0.1 10 ^3/uL (0-0.2); Basophils % (auto) 0.8 % (0.0-2.0); Eosinophils # (auto) 0.2 10 ^3/uL (0-0.8); Eosinophils % (auto) 3.1 % (0.0-7.0); Hematocrit 42.8 % (36.0-46.0); Hemoglobin 14.6 g/dL (12.2-16.2); Lymphocytes # (auto) 1.3 10 ^3/uL (0.4-5.4); Mean Corpuscular Hgb Conc. 34.1 g/dL (32.0-36.0); Mean Corpuscular Volume 90.8 fL (80.0-100.0); Monocytes # (auto) 0.4 10 ^3/uL (0-1.3); Monocytes % (auto) 5.9 % (0.0-12.0); Neutrophils # (auto) 4.7 10 ^3/uL (1.6-8.6); Neutrophils % (auto) 71.2 % (37.0-80.0); Red Blood Cells 4.71 10^6/uL (4.0-5.20); Red Cell Distribution Width 14.5 % (11.8-14.3); White Blood Cell 6.6 10^3/uL (4.4-10.8)
[2020-10-22 10:10] LABS: Albumin 3.3 g/dL (3.4-5.0); Calcium 8.6 mg/dL (8.5-10.1); Potassium 3.6 mmol/L (3.5-5.1)
[2020-10-22 10:13] LABS: BUN/Creatinine Ratio 16.9; Bilirubin, Total 0.3 mg/dL (0.2-1.0); Total Protein 7.6 g/dL (6.4-8.2)
[~2020-10-26] VITALS: Ht 157.5 cm; Wt 90.7 kg
[~2020-10-26] MED LIST changes: +ASCO500T11 PO; +BUPIVACAINE 0.25% INJ 50ML VIAL ONE; +FERR-7 PO; +FOLITAB22 PO; +INFL100I IV; +LIDOCAINE 1% HCL (LOCAL ANESTH.) INJ 20ML MDV ONE; -LISI-716 PO; +LISI2.5T47 PO; +LORATADINE 10 MG TAB PO ONE; +MIDAZOLAM HCL 2MG/2ML 2ml VIAL (1mg/ml) ONE; +PROPOFOL 10 MG/ML 20 ML IV ONE; +ZINC66TA PO; +ceFAZolin 1GM/50ML 100 ML IV ONE; +diphenhdrAMINE HCL 25 MG CAP PO ONE; +fentaNYL CITRATE 100 MCG/2 ML VL ONE
[2020-10-26] MEDS: diphenhdrAMINE HCL 25 MG CAP PO ONE ×2 (12:38→12:40)
[2020-10-26 13:00] VITALS: BP 126/59
== END | disposition home or self-care (01) ==
LOC: SUR 10:13
PROVIDERS: ATTEND Orthopaedic Surgery Adult Reconstructive Orthopaedic Surgery
DX: M65.331 Trigger finger, right middle finger (principal); J45.909 Unspecified asthma, uncomplicated; K21.9 Gastro-esophageal reflux disease without esophagitis; D64.9 Anemia, unspecified; I10 Essential (primary) hypertension; Z88.8 Allergy status to other drugs, medicaments and biological substances; Z20.822 Contact with and (suspected) exposure to COVID-19; Z90.710 Acquired absence of both cervix and uterus; Z98.890 Other specified postprocedural states; Z79.899 Other long term (current) drug therapy; Z68.36 Body mass index [BMI] 36.0-36.9, adult; Z88.1 Allergy status to other antibiotic agents
CPT/HCPCS: 26055; 36415; 80053; 81001; 85025; J0690; J2001; J2250; J2704; J3010; J3490; U0003

== ENCOUNTER → 2021-02-26 | Outpatient (CLI) | payer OTHER ==
[~2021-02-26] MED LIST changes: -BUPIVACAINE 0.25% INJ 50ML VIAL ONE; -LIDOCAINE 1% HCL (LOCAL ANESTH.) INJ 20ML MDV ONE; -LORATADINE 10 MG TAB PO ONE; -MIDAZOLAM HCL 2MG/2ML 2ml VIAL (1mg/ml) ONE; -PROPOFOL 10 MG/ML 20 ML IV ONE; -ceFAZolin 1GM/50ML 100 ML IV ONE; -diphenhdrAMINE HCL 25 MG CAP PO ONE; -fentaNYL CITRATE 100 MCG/2 ML VL ONE
[2021-02-26 10:16] LABS: Basophils # (auto) 0.1 10 ^3/uL (0-0.2); Basophils % (auto) 0.7 % (0.0-2.0); Eosinophils # (auto) 0.2 10 ^3/uL (0-0.8); Eosinophils % (auto) 2.6 % (0.0-7.0); Hematocrit 40.8 % (36.0-46.0); Hemoglobin 13.9 g/dL (12.2-16.2); Lymphocytes # (auto) 0.9 10 ^3/uL (0.4-5.4); Mean Corpuscular Hemoglobin 30.7 pg (28.0-32.0); Mean Corpuscular Hgb Conc. 34.2 g/dL (32.0-36.0); Mean Corpuscular Volume 89.9 fL (80.0-100.0); Monocytes # (auto) 0.5 10 ^3/uL (0-1.3); Monocytes % (auto) 5.7 % (0.0-12.0); Neutrophils # (auto) 6.2 10 ^3/uL (1.6-8.6); Red Blood Cells 4.54 10^6/uL (4.0-5.20); Red Cell Distribution Width 13.4 % (11.8-14.3); White Blood Cell 7.9 10^3/uL (4.4-10.8)
[2021-02-26 10:28] LABS: Potassium 3.3 mmol/L (3.5-5.1)
[2021-02-26 10:41] LABS: Albumin 3.2 g/dL (3.4-5.0); BUN/Creatinine Ratio 14.1; Bilirubin, Total 0.6 mg/dL (0.2-1.0); CRP High Sensitivity 0.76 mg/dL (< 0.3); Calcium 8.8 mg/dL (8.5-10.1); Total Protein 7.4 g/dL (6.4-8.2)
== END | disposition home or self-care (01) ==
LOC: LAB 07:59
PROVIDERS: ATTEND Internal Medicine Rheumatology
DX: Z11.1 Encounter for screening for respiratory tuberculosis (principal); K50.919 Crohn's disease, unspecified, with unspecified complications; R94.5 Abnormal results of liver function studies
CPT/HCPCS: 36415; 80053; 85025; 85652; 86141; 87902

== ENCOUNTER → 2021-04-01 | Outpatient (CLI) | payer OTHER | END | disposition home or self-care (01) | LOC: LAB 08:12 | PROVIDERS: ATTEND Internal Medicine Gastroenterology | DX: K50.80 Crohn's disease of both small and large intestine without complications (principal) | CPT/HCPCS: 36415; 82565; 84520 ==

== ENCOUNTER → 2021-06-02 | Outpatient (CLI) | payer OTHER ==
[2021-06-02 10:58] LABS: Basophils # (auto) 0.1 10 ^3/uL (0-0.2); Basophils % (auto) 0.6 % (0.0-2.0); Eosinophils # (auto) 0.3 10 ^3/uL (0-0.8); Eosinophils % (auto) 2.5 % (0.0-7.0); Hematocrit 40.2 % (36.0-46.0); Hemoglobin 13.7 g/dL (12.2-16.2); Lymphocytes # (auto) 1.4 10 ^3/uL (0.4-5.4); Lymphocytes % (auto) 13.4 % (10.0-50.0); Mean Corpuscular Hemoglobin 30.7 pg (28.0-32.0); Mean Corpuscular Hgb Conc. 34.1 g/dL (32.0-36.0); Mean Corpuscular Volume 90.1 fL (80.0-100.0); Monocytes # (auto) 0.6 10 ^3/uL (0-1.3); Monocytes % (auto) 5.8 % (0.0-12.0); Neutrophils # (auto) 8.1 10 ^3/uL (1.6-8.6); Neutrophils % (auto) 77.7 % (37.0-80.0); Red Blood Cells 4.47 10^6/uL (4.0-5.20); Red Cell Distribution Width 14.1 % (11.8-14.3); White Blood Cell 10.4 10^3/uL (4.4-10.8)
[2021-06-02 11:25] LABS: Albumin 2.9 g/dL (3.4-5.0); Potassium 3.3 mmol/L (3.5-5.1)
[2021-06-02 11:28] LABS: Bilirubin, Total 0.4 mg/dL (0.2-1.0); Total Protein 7.3 g/dL (6.4-8.2)
[2021-06-02 15:52] LABS: CRP High Sensitivity 1.65 mg/dL (< 0.3)
== END | disposition home or self-care (01) ==
LOC: LAB 10:48
PROVIDERS: ATTEND Internal Medicine Rheumatology
DX: K50.919 Crohn's disease, unspecified, with unspecified complications (principal)
CPT/HCPCS: 36415; 80053; 85025; 85652; 86141

== ENCOUNTER 2021-06-18 11:35 | Day surgery (SDC) | payer OTHER ==
[2021-06-16 08:42] LABS: Basophils # (auto) 0.1 10 ^3/uL (0-0.2); Basophils % (auto) 1.3 % (0.0-2.0); Eosinophils # (auto) 0.2 10 ^3/uL (0-0.8); Hemoglobin 14.1 g/dL (12.2-16.2); Lymphocytes # (auto) 1.3 10 ^3/uL (0.4-5.4); Lymphocytes % (auto) 17.9 % (10.0-50.0); Mean Corpuscular Hemoglobin 30.6 pg (28.0-32.0); Mean Corpuscular Hgb Conc. 34.3 g/dL (32.0-36.0); Mean Corpuscular Volume 89.1 fL (80.0-100.0); Monocytes # (auto) 0.4 10 ^3/uL (0-1.3); Neutrophils # (auto) 5.3 10 ^3/uL (1.6-8.6); Neutrophils % (auto) 71.8 % (37.0-80.0); Nucleated Red Blood Cells % 0.1 %; White Blood Cell 7.4 10^3/uL (4.4-10.8)
[2021-06-16 08:48] LABS: Urine Bacteria MOD /hpf (None Seen); Urine Blood Negative /uL (Negative); Urine Hyaline Cast FEW /lpf (0 - 2); Urine Specific Gravity 1.015 (1.001-1.035); Urine WBC 195 /hpf (0 - 5); Urine WBC Clumps PRESENT /hpf (None Seen)
[2021-06-16 08:58] LABS: INR 0.99 (0.9-1.15); Partial Thromboplastin Time 26.9 sec (23.6-33.0)
[2021-06-16 09:17] LABS: Albumin 3.3 g/dL (3.4-5.0); Calcium 9.1 mg/dL (8.5-10.1); Potassium 3.6 mmol/L (3.5-5.1)
[2021-06-16 09:20] LABS: BUN/Creatinine Ratio 16.7; Bilirubin, Total 0.6 mg/dL (0.2-1.0); Total Protein 7.6 g/dL (6.4-8.2)
[~2021-06-18] VITALS: Ht 157.5 cm; Wt 91.6 kg
[~2021-06-18 11:35] MED LIST changes: -CALC600T80 PO; -CHOL100029 PO; -CIP500T PO; -CLIN-188 PO; -CYAN1TAB14 PO; +DICY10CA PO; -FOLITAB22 PO; -HYOS0.1250 PO; -LISI2.5T47 PO; +LISI20TA28 PO; -METH4TAB PO; -POTA-220 PO; +POTA10TA51 PO; -USTE1INJ IV; +VITA1TAB6 PO; -ZINC66TA PO
[2021-06-18] MEDS ORDERED: fentaNYL CITRATE 100 MCG/2 ML VL ONE (12:52)
[2021-06-18] MEDS ORDERED: MIDAZOLAM HCL 2MG/2ML 2ml VIAL (1mg/ml) ONE (12:52)
[2021-06-18] MEDS ORDERED: PROPOFOL 10 MG/ML 20 ML IV ONE (13:37)
[2021-06-18] MEDS ORDERED: ONDANSETRON HCL 4 MG/2 ML VIAL ONE (13:38)
[2021-06-18] MEDS ORDERED: ONDANSETRON HCL 4 MG/2 ML VIAL IV PRN (13:45)
[2021-06-18 14:00] VITALS: BP 121/69
== END 2021-06-18 14:00 | disposition home or self-care (01) ==
LOC: GI 11:35
PROVIDERS: ATTEND Internal Medicine Gastroenterology
DX: R10.9 Unspecified abdominal pain (principal); K21.9 Gastro-esophageal reflux disease without esophagitis; K22.70 Barrett's esophagus without dysplasia; K44.9 Diaphragmatic hernia without obstruction or gangrene; K29.50 Unspecified chronic gastritis without bleeding; K31.9 Disease of stomach and duodenum, unspecified; K62.1 Rectal polyp; I10 Essential (primary) hypertension; J45.909 Unspecified asthma, uncomplicated; Z90.49 Acquired absence of other specified parts of digestive tract; Z90.710 Acquired absence of both cervix and uterus; Z90.10 Acquired absence of unspecified breast and nipple; Z88.1 Allergy status to other antibiotic agents; Z86.2 Personal history of diseases of the blood and blood-forming organs and certain disorders involving the immune mechanism; Z82.49 Family history of ischemic heart disease and other diseases of the circulatory system; Z82.61 Family history of arthritis; Z82.69 Family history of other diseases of the musculoskeletal system and connective tissue; Z81.1 Family history of alcohol abuse and dependence; Z20.822 Contact with and (suspected) exposure to COVID-19
CPT/HCPCS: 36415; 43239; 45380; 80053; 81001; 85025; 85610; 85730; 88305; 88312; 88342; J2250; J2405; J2704; J3010; J7030; U0003; 99152; 99153

== ENCOUNTER 2021-07-01 08:32 | Day surgery (SDC) | payer OTHER ==
[2021-06-28 11:55] LABS: Basophils # (auto) 0.1 10 ^3/uL (0-0.2); Basophils % (auto) 0.7 % (0.0-2.0); Eosinophils # (auto) 0.3 10 ^3/uL (0-0.8); Eosinophils % (auto) 3.3 % (0.0-7.0); Hematocrit 41.4 % (36.0-46.0); Hemoglobin 13.6 g/dL (12.2-16.2); Lymphocytes # (auto) 1.4 10 ^3/uL (0.4-5.4); Lymphocytes % (auto) 17.8 % (10.0-50.0); Mean Corpuscular Hemoglobin 29.7 pg (28.0-32.0); Mean Corpuscular Hgb Conc. 32.8 g/dL (32.0-36.0); Mean Corpuscular Volume 90.6 fL (80.0-100.0); Monocytes # (auto) 0.4 10 ^3/uL (0-1.3); Monocytes % (auto) 5.3 % (0.0-12.0); Neutrophils # (auto) 5.7 10 ^3/uL (1.6-8.6); Neutrophils % (auto) 72.9 % (37.0-80.0); Nucleated Red Blood Cells % 0.1 %; Red Blood Cells 4.57 10^6/uL (4.0-5.20); Red Cell Distribution Width 14.2 % (11.8-14.3); White Blood Cell 7.9 10^3/uL (4.4-10.8)
[2021-06-28 12:17] LABS: INR 0.98 (0.9-1.15); Partial Thromboplastin Time 26.9 sec (23.6-33.0)
[2021-06-28 12:35] LABS: Albumin 3.1 g/dL (3.4-5.0); BUN/Creatinine Ratio 18.6; Calcium 8.8 mg/dL (8.5-10.1); Potassium 3.5 mmol/L (3.5-5.1)
[2021-06-28 12:38] LABS: Bilirubin, Total 0.4 mg/dL (0.2-1.0); Total Protein 6.9 g/dL (6.4-8.2); Urine Bacteria FEW /hpf (None Seen); Urine Blood Negative /uL (Negative); Urine Specific Gravity 1.017 (1.001-1.035); Urine WBC 258 /hpf (0 - 5)
[~2021-07-01] VITALS: Ht 157.5 cm; Wt 90.7 kg
[2021-07-01] MEDS ORDERED: CIPROFLOXACIN 400MG/200ML 200 ML IV ONE (09:53)
[2021-07-01] MEDS ORDERED: MIDAZOLAM HCL 2MG/2ML 2ml VIAL (1mg/ml) ONE (11:03)
[2021-07-01] MEDS ORDERED: PROPOFOL 10 MG/ML 20 ML IV ONE (11:42)
[2021-07-01] MEDS ORDERED: HYDROmorphone HCL 2 MG/ML VL/or syr IV PRN (11:45)
[2021-07-01] MEDS ORDERED: ONDANSETRON HCL 4 MG/2 ML VIAL IV PRN (11:45)
[2021-07-01 12:50] VITALS: BP 145/78
== END 2021-07-01 13:10 | disposition home or self-care (01) ==
LOC: SUR 08:32
PROVIDERS: ATTEND Urology
DX: N20.0 Calculus of kidney (principal); I10 Essential (primary) hypertension; J45.909 Unspecified asthma, uncomplicated; E66.9 Obesity, unspecified; Z90.710 Acquired absence of both cervix and uterus; Z98.890 Other specified postprocedural states; Z79.899 Other long term (current) drug therapy; Z88.1 Allergy status to other antibiotic agents; Z20.822 Contact with and (suspected) exposure to COVID-19; Z68.36 Body mass index [BMI] 36.0-36.9, adult; Z82.49 Family history of ischemic heart disease and other diseases of the circulatory system; Z83.49 Family history of other endocrine, nutritional and metabolic diseases; Z82.61 Family history of arthritis
CPT/HCPCS: 36415; 50590; 80053; 81001; 85025; 85610; 85730; 87086; 87088; 87186; J0744; J2250; J2704; U0003

== ENCOUNTER → 2021-08-19 | Outpatient (CLI) | payer OTHER | END | disposition home or self-care (01) | LOC: LAB 14:49 | PROVIDERS: ATTEND Urology | DX: N39.0 Urinary tract infection, site not specified (principal) | CPT/HCPCS: 87086 ==

== ENCOUNTER → 2021-09-21 | Outpatient (CLI) | payer OTHER ==
[2021-09-21 15:38] LABS: Urine Blood Negative /uL (Negative); Urine Specific Gravity 1.017 (1.001-1.035)
== END | disposition home or self-care (01) ==
LOC: LAB 15:19
PROVIDERS: ATTEND Internal Medicine
DX: N39.0 Urinary tract infection, site not specified (principal)
CPT/HCPCS: 81003; 87086; 87088; 87186

== ENCOUNTER 2021-10-07 16:28 | Emergency (ER) | payer OTHER ==
[~2021-10-07] VITALS: Ht 157.5 cm; Wt 91.8 kg
[2021-10-07 17:12] LABS: Basophils # (auto) 0.2 10 ^3/uL (0-0.2); Basophils % (auto) 1.4 % (0.0-2.0); Eosinophils # (auto) 0.4 10 ^3/uL (0-0.8); Eosinophils % (auto) 3.1 % (0.0-7.0); Hematocrit 37.6 % (36.0-46.0); Lymphocytes # (auto) 1.3 10 ^3/uL (0.4-5.4); Lymphocytes % (auto) 10.9 % (10.0-50.0); Mean Corpuscular Hemoglobin 28.5 pg (28.0-32.0); Mean Corpuscular Hgb Conc. 31.8 g/dL (32.0-36.0); Mean Corpuscular Volume 89.7 fL (80.0-100.0); Monocytes # (auto) 0.7 10 ^3/uL (0-1.3); Neutrophils # (auto) 9.5 10 ^3/uL (1.6-8.6); Neutrophils % (auto) 78.6 % (37.0-80.0); Nucleated Red Blood Cells % 0.1 %; Red Cell Distribution Width 13.1 % (11.8-14.3)
[2021-10-07 17:29] LABS: Albumin 2.7 g/dL (3.4-5.0); BUN/Creatinine Ratio 13.6; Calcium 8.3 mg/dL (8.5-10.1)
[2021-10-07 17:31] LABS: Bilirubin, Total 0.4 mg/dL (0.2-1.0); Total Protein 6.4 g/dL (6.4-8.2)
[2021-10-07 18:07] LABS: Potassium 2.9 mmol/L (3.5-5.1)
[2021-10-07] MEDS ORDERED: POTASSIUM EFFERVESENT TAB 25 MEQ PO ONE (18:15)
[2021-10-07] MEDS ORDERED: POTASSIUM CHL 20MEQ/100ML 100 ML IV ONE (19:00)
[2021-10-07] MEDS ORDERED: DexAMETHasone 4 MG TAB PO ONE (21:00)
[2021-10-07] MEDS ORDERED: ALBUTEROL SULF 2.5 MG/0.5ML(0.5%) NEB SOLN NEB ONE (21:00)
[2021-10-07] MEDS ORDERED: IPRATROPIUM BROM 0.5 MG/2.5ML INH SOL NEB ONE (21:00)
[2021-10-07] MEDS ORDERED: IPRATROPIUM BROM 0.5 MG/2.5ML INH SOL ONE (21:06)
[2021-10-07] MEDS ORDERED: ALBUTEROL SULF 2.5 MG/0.5ML(0.5%) NEB SOLN ONE (21:06)
[2021-10-08] MEDS ORDERED: PRED20TA2 PO (08:05)
[2021-10-08] MEDS ORDERED: ALBUAER3 IN (08:05)
[2021-10-08] MEDS ORDERED: POTA15TA12 PO (08:05)
[2021-10-08] MEDS ORDERED: AZIT500T PO (08:05)
[2021-10-08] MEDS ORDERED: IPRATROPIUM BROM 0.5 MG/2.5ML INH SOL NEB ONE (08:15)
[2021-10-08] MEDS ORDERED: ALBUTEROL SULF 2.5 MG/0.5ML(0.5%) NEB SOLN NEB ONE (08:15)
[2021-10-08 08:50] LABS: Basophils # (auto) 0 10 ^3/uL (0-0.2); Basophils % (auto) 0.4 % (0.0-2.0); Eosinophils # (auto) 0.2 10 ^3/uL (0-0.8); Eosinophils % (auto) 1.5 % (0.0-7.0); Hematocrit 35.8 % (36.0-46.0); Hemoglobin 11.8 g/dL (12.2-16.2); Lymphocytes # (auto) 0.4 10 ^3/uL (0.4-5.4); Lymphocytes % (auto) 4.2 % (10.0-50.0); Mean Corpuscular Hemoglobin 29.3 pg (28.0-32.0); Mean Corpuscular Hgb Conc. 32.9 g/dL (32.0-36.0); Monocytes # (auto) 0.3 10 ^3/uL (0-1.3); Monocytes % (auto) 2.6 % (0.0-12.0); Neutrophils # (auto) 9.8 10 ^3/uL (1.6-8.6); Neutrophils % (auto) 91.3 % (37.0-80.0); Red Blood Cells 4.02 10^6/uL (4.0-5.20); Red Cell Distribution Width 13.6 % (11.8-14.3); White Blood Cell 10.7 10^3/uL (4.4-10.8)
[2021-10-08 09:04] LABS: BUN/Creatinine Ratio 23.1; Calcium 8.6 mg/dL (8.5-10.1); Magnesium 2.2 mg/dL (1.6-2.6); Potassium 3.3 mmol/L (3.5-5.1)
[2021-10-08] MEDS ORDERED: POTASSIUM CHL 20 Meq TABLET PO ONE (09:30)
[2021-10-08 12:00] VITALS: BP 131/75
== END 2021-10-08 12:24 | disposition home or self-care (01) ==
LOC: ER 16:28
DX: R07.89 Other chest pain (principal); J45.909 Unspecified asthma, uncomplicated; I10 Essential (primary) hypertension; Z90.49 Acquired absence of other specified parts of digestive tract; Z90.710 Acquired absence of both cervix and uterus; Z20.822 Contact with and (suspected) exposure to COVID-19
CPT/HCPCS: 36415; 71045; 80048; 80053; 83735; 83880; 84484; 85025; 85379; 87426; 93005; 94640; 96360; 96361; 99285; J3480; J7644; J8540

== ENCOUNTER → 2021-10-12 | Outpatient (CLI) | payer OTHER ==
[~2021-10-12] MED LIST changes: +ALBUAER3 IN; +AZIT500T PO; +POTA15TA12 PO; +PRED20TA2 PO
[2021-10-12 10:46] LABS: BUN/Creatinine Ratio 20.3; Calcium 8.8 mg/dL (8.5-10.1)
== END | disposition home or self-care (01) ==
LOC: LAB 09:57
PROVIDERS: ATTEND Internal Medicine
DX: I10 Essential (primary) hypertension (principal)
CPT/HCPCS: 36415; 80048

== ENCOUNTER → 2021-10-26 | Outpatient (CLI) | payer OTHER ==
[2021-10-26 08:29] LABS: Basophils # (auto) 0.1 10 ^3/uL (0-0.2); Basophils % (auto) 1.2 % (0.0-2.0); Eosinophils # (auto) 0.2 10 ^3/uL (0-0.8); Eosinophils % (auto) 2.5 % (0.0-7.0); Hematocrit 40.5 % (36.0-46.0); Hemoglobin 13.1 g/dL (12.2-16.2); Lymphocytes # (auto) 1.4 10 ^3/uL (0.4-5.4); Lymphocytes % (auto) 17.4 % (10.0-50.0); Mean Corpuscular Hemoglobin 29.6 pg (28.0-32.0); Mean Corpuscular Hgb Conc. 32.5 g/dL (32.0-36.0); Mean Corpuscular Volume 91.1 fL (80.0-100.0); Monocytes # (auto) 0.5 10 ^3/uL (0-1.3); Neutrophils # (auto) 5.7 10 ^3/uL (1.6-8.6); Neutrophils % (auto) 72.9 % (37.0-80.0); Nucleated Red Blood Cells % 0.1 %; Red Blood Cells 4.44 10^6/uL (4.0-5.20); Red Cell Distribution Width 14.2 % (11.8-14.3); White Blood Cell 7.8 10^3/uL (4.4-10.8)
[2021-10-26 08:57] LABS: Albumin 3.2 g/dL (3.4-5.0); Calcium 8.9 mg/dL (8.5-10.1); Potassium 4.8 mmol/L (3.5-5.1)
[2021-10-26 08:59] LABS: BUN/Creatinine Ratio 25.3; Bilirubin, Total 0.4 mg/dL (0.2-1.0); CRP High Sensitivity 0.07 mg/dL (< 0.3); Total Protein 6.4 g/dL (6.4-8.2)
== END | disposition home or self-care (01) ==
LOC: LAB 08:07
PROVIDERS: ATTEND Internal Medicine Rheumatology
DX: K50.919 Crohn's disease, unspecified, with unspecified complications (principal)
CPT/HCPCS: 36415; 80053; 85025; 85652; 86141

== ENCOUNTER → 2021-11-12 | Outpatient (CLI) | payer OTHER ==
[2021-11-12 15:38] LABS: Urine Bacteria MANY /hpf (None Seen); Urine Blood Negative /uL (Negative); Urine Mucus FEW (None Seen); Urine WBC 114 /hpf (0 - 5)
== END | disposition home or self-care (01) ==
LOC: LAB 12:11
PROVIDERS: ATTEND Urology
DX: N39.0 Urinary tract infection, site not specified (principal)
CPT/HCPCS: 81001; 87086

== ENCOUNTER → 2021-11-17 | Outpatient (CLI) | payer OTHER ==
[2021-11-17 11:44] LABS: Urine Bacteria FEW /hpf (None Seen); Urine Blood Negative /uL (Negative); Urine Mucus FEW (None Seen); Urine Specific Gravity 1.018 (1.001-1.035); Urine WBC 153 /hpf (0 - 5)
== END | disposition home or self-care (01) ==
LOC: LAB 11:06
PROVIDERS: ATTEND Urology
DX: N39.0 Urinary tract infection, site not specified (principal)
CPT/HCPCS: 81001; 87086; 87088; 87186

== ENCOUNTER → 2021-12-24 | Outpatient (CLI) | payer OTHER ==
[2021-12-24 09:35] LABS: Cholesterol 150 mg/dL (< 200); HDL Cholesterol 68 mg/dL (40-59); LDL Cholesterol 90 mg/dL (< 100); Triglycerides 77 mg/dL (< 150)
== END | disposition home or self-care (01) ==
LOC: LAB 08:53
PROVIDERS: ATTEND Internal Medicine
DX: Z00.00 Encounter for general adult medical examination without abnormal findings (principal); I10 Essential (primary) hypertension; E55.9 Vitamin D deficiency, unspecified
CPT/HCPCS: 36415; 80061; 82306; 84439; 84443

== ENCOUNTER → 2022-01-10 | Outpatient (CLI) | payer OTHER ==
[2022-01-11 14:16] LABS: Urine Bacteria MANY /hpf (None Seen); Urine Blood TRACE /uL (Negative); Urine Mucus MANY (None Seen); Urine Specific Gravity 1.021 (1.001-1.035); Urine WBC 304 /hpf (0 - 5); Urine WBC Clumps PRESENT /hpf (None Seen)
== END | disposition home or self-care (01) ==
LOC: LAB 20:40
PROVIDERS: ATTEND Urology
DX: N39.0 Urinary tract infection, site not specified (principal)
CPT/HCPCS: 81001; 87086; 87088; 87186

== ENCOUNTER → 2022-02-04 | Outpatient (CLI) | payer OTHER ==
[2022-02-04 10:41] LABS: Urine Bacteria NONE SEEN /hpf (None Seen); Urine Blood Negative /uL (Negative); Urine Mucus FEW (None Seen); Urine Specific Gravity 1.024 (1.001-1.035); Urine WBC 1 /hpf (0 - 5)
== END | disposition home or self-care (01) ==
LOC: LAB 10:22
PROVIDERS: ATTEND Urology
DX: N39.0 Urinary tract infection, site not specified (principal)
CPT/HCPCS: 81001; 87086

== ENCOUNTER → 2022-03-01 | Outpatient (CLI) | payer OTHER ==
[~2022-03-01] VITALS: Ht 157.5 cm; Wt 90.7 kg
== END | disposition home or self-care (01) ==
LOC: Rad HDHVI 08:21
PROVIDERS: ATTEND Internal Medicine Cardiovascular Disease
DX: R07.89 Other chest pain (principal); R06.02 Shortness of breath; I10 Essential (primary) hypertension; E66.8 Other obesity; Z82.49 Family history of ischemic heart disease and other diseases of the circulatory system
CPT/HCPCS: 78452; 93017; 96374; A9500

== ENCOUNTER → 2022-04-12 | Outpatient (CLI) | payer OTHER ==
[2022-04-12 15:23] LABS: Basophils # (auto) 0.1 10 ^3/uL (0-0.2); Basophils % (auto) 0.7 % (0.0-2.0); Eosinophils # (auto) 0.2 10 ^3/uL (0-0.8); Hematocrit 40.6 % (36.0-46.0); Hemoglobin 13.6 g/dL (12.2-16.2); Lymphocytes # (auto) 1.5 10 ^3/uL (0.4-5.4); Lymphocytes % (auto) 15.6 % (10.0-50.0); Mean Corpuscular Hgb Conc. 33.6 g/dL (32.0-36.0); Mean Corpuscular Volume 92.2 fL (80.0-100.0); Monocytes # (auto) 0.5 10 ^3/uL (0-1.3); Monocytes % (auto) 5.5 % (0.0-12.0); Neutrophils # (auto) 7.2 10 ^3/uL (1.6-8.6); Neutrophils % (auto) 76.2 % (37.0-80.0); Red Cell Distribution Width 13.6 % (11.8-14.3); White Blood Cell 9.4 10^3/uL (4.4-10.8)
[2022-04-12 15:49] LABS: Albumin 2.9 g/dL (3.4-5.0); BUN/Creatinine Ratio 18.6; Calcium 8.6 mg/dL (8.5-10.1); Potassium 3.4 mmol/L (3.5-5.1)
[2022-04-12 15:52] LABS: Bilirubin, Total 0.4 mg/dL (0.2-1.0); Total Protein 6.8 g/dL (6.4-8.2)
== END | disposition home or self-care (01) ==
LOC: LAB 15:03
PROVIDERS: ATTEND Internal Medicine Rheumatology
DX: K50.919 Crohn's disease, unspecified, with unspecified complications (principal)
CPT/HCPCS: 36415; 80053; 85025

== ENCOUNTER 2022-05-10 06:17 | Day surgery (SDC) | payer OTHER ==
[2022-05-09 15:07] LABS: Basophils # (auto) 0.1 10 ^3/uL (0-0.2); Eosinophils # (auto) 0.3 10 ^3/uL (0-0.8); Monocytes # (auto) 0.7 10 ^3/uL (0-1.3); Red Blood Cells 4.87 10^6/uL (4.0-5.20)
[2022-05-09 15:08] LABS: Basophils % (auto) 0.7 % (0.0-2.0); Eosinophils % (auto) 2.8 % (0.0-7.0); Hematocrit 45.1 % (36.0-46.0); Hemoglobin 14.8 g/dL (12.2-16.2); Lymphocytes # (auto) 1.9 10 ^3/uL (0.4-5.4); Lymphocytes % (auto) 15.2 % (10.0-50.0); Mean Corpuscular Hemoglobin 30.4 pg (28.0-32.0); Mean Corpuscular Hgb Conc. 32.8 g/dL (32.0-36.0); Mean Corpuscular Volume 92.7 fL (80.0-100.0); Monocytes % (auto) 5.9 % (0.0-12.0); Neutrophils # (auto) 9.2 10 ^3/uL (1.6-8.6); Neutrophils % (auto) 75.4 % (37.0-80.0); Nucleated Red Blood Cells % 0.1 %; Red Cell Distribution Width 13.9 % (11.8-14.3); White Blood Cell 12.3 10^3/uL (4.4-10.8)
[2022-05-09 15:28] LABS: INR 0.94 (0.9-1.15); Partial Thromboplastin Time 27.6 sec (24.6-33.4)
[2022-05-09 15:44] LABS: Potassium 4.6 mmol/L (3.5-5.1)
[2022-05-09 15:53] LABS: BUN/Creatinine Ratio 31.7 (10.0-20.0); Bilirubin, Total 0.3 mg/dL (0.2-1.0); Total Protein 7.5 g/dL (6.4-8.2); Urine Bacteria MANY /hpf (None Seen); Urine Blood Negative /uL (Negative); Urine Hyaline Cast MANY /lpf (0 - 2); Urine Mucus FEW (None Seen); Urine Specific Gravity 1.021 (1.001-1.035); Urine WBC 251 /hpf (0 - 5)
[~2022-05-10] VITALS: Ht 157.5 cm; Wt 90.7 kg
[~2022-05-10 06:17] MED LIST changes: -ASCO500T11 PO; -AZIT500T PO; -DICY10CA PO; +FAMO-68 PO; +HYDR-4072 PO; +MULT-1018 OR; -ONDA-144 PO; -POTA10TA51 PO; -PRED20TA2 PO; +PYRI1TAB3 PO; -VITA1TAB6 PO
[2022-05-10] MEDS ORDERED: BUPIVACAINE 0.5% P/F INJ 10 ML VIAL ONE (06:46)
[2022-05-10] MEDS ORDERED: DexAMETHasone SOD PHOS 4 MG/1ML SDV INJ ONE (06:46)
[2022-05-10] MEDS ORDERED: LIDOCAINE 2% JELLY 11ml (GLYDO) ONE (06:54)
[2022-05-10] MEDS ORDERED: MIDAZOLAM HCL 2MG/2ML 2ml VIAL (1mg/ml) ONE (06:57)
[2022-05-10] MEDS ORDERED: SUGAMMADEX 200mg/2ml Vial (100MG/ML) IV ONE (06:57)
[2022-05-10] MEDS ORDERED: fentaNYL CITRATE 100 MCG/2 ML VL ONE (06:57)
[2022-05-10] MEDS ORDERED: PROPOFOL 10 MG/ML 20 ML IV ONE (07:00)
[2022-05-10] MEDS ORDERED: DexAMETHasone SOD PHOS 10MG/1ML VIAL INJ ONE (07:01)
[2022-05-10] MEDS ORDERED: ONDANSETRON HCL 4 MG/2 ML VIAL ONE (07:01)
[2022-05-10] MEDS ORDERED: GLYCOPYRROLATE 0.2 MG/ML 1ML VIAL ONE (07:01)
[2022-05-10] MEDS ORDERED: LIDOCAINE 2% (LOCAL ANESTH.) PF 5ml SDV ONE (07:01)
[2022-05-10] MEDS ORDERED: KETOROLAC TROMETH 30 MG/ML 1ML VIAL ONE (07:01)
[2022-05-10] MEDS ORDERED: ROCURONIUM 10MG/ML 10ML VIAL IV ONE (07:02)
[2022-05-10] MEDS ORDERED: ceFAZolin 1GM/50ML 100 ML IV ONE (07:17)
[2022-05-10] MEDS ORDERED: HYDROmorphone HCL 2 MG/ML VL/or syr IV PRN (09:30)
[2022-05-10] MEDS ORDERED: ONDANSETRON HCL 4 MG/2 ML VIAL IV PRN (09:30)
[2022-05-10] MEDS ORDERED: NALOXONE HCL 0.4 MG/ML VIAL IV PRN (09:30)
[2022-05-10] MEDS ORDERED: FLUMAZENIL 0.1 MG/ML INJ 10ML MDV IV PRN (09:30)
[2022-05-10] MEDS ORDERED: LABETALOL HCL 5 MG/ML 4ML SYRINGE IV PRN (09:30)
[2022-05-10] MEDS ORDERED: ePHEDrine SULFATE 50 MG/ML AMP IV PRN (09:30)
[2022-05-10] MEDS ORDERED: hydrALAZINE HCL 20 MG/ML VL IV PRN (09:30)
[2022-05-10] MEDS ORDERED: fentaNYL CITRATE 100 MCG/2 ML VL IV PRN (09:30)
[2022-05-10 10:05] VITALS: BP 94/57
== END 2022-05-10 10:25 | disposition home or self-care (01) ==
LOC: SUR 06:17
PROVIDERS: ATTEND Orthopaedic Surgery
DX: S42.292A Other displaced fracture of upper end of left humerus, initial encounter for closed fracture (principal); N39.0 Urinary tract infection, site not specified; X58.XXXA Exposure to other specified factors, initial encounter; Y93.89 Activity, other specified; Y92.89 Other specified places as the place of occurrence of the external cause; I10 Essential (primary) hypertension; J45.909 Unspecified asthma, uncomplicated; Z90.710 Acquired absence of both cervix and uterus; Z82.49 Family history of ischemic heart disease and other diseases of the circulatory system; Z82.61 Family history of arthritis; Z81.1 Family history of alcohol abuse and dependence; Z90.49 Acquired absence of other specified parts of digestive tract; Z84.89 Family history of other specified conditions; Z88.8 Allergy status to other drugs, medicaments and biological substances; Z88.2 Allergy status to sulfonamides; Z79.891 Long term (current) use of opiate analgesic; Z79.51 Long term (current) use of inhaled steroids; Z79.899 Other long term (current) drug therapy; Z98.890 Other specified postprocedural states; Z20.822 Contact with and (suspected) exposure to COVID-19
CPT/HCPCS: 23615; 36415; 73060; 76000; 80053; 81001; 85025; 85610; 85730; J0690; J1100; J1885; J2001; J2250; J2405; J2704; J3010; J3490; U0003

== ENCOUNTER → 2022-09-06 | Outpatient (CLI) | payer OTHER ==
[~2022-09-06] MED LIST changes: +BUDE3CAP18 PO; +FOLI-119 PO; -FOLI1TAB6 PO; -LISI20TA28 PO; +LISI20TA56 PO; -[UNRECOGNIZED DRUG - CODE] PO
[2022-09-06 08:31] LABS: Urine Bacteria NONE SEEN /hpf (None Seen); Urine Blood Negative /uL (Negative); Urine Hyaline Cast FEW /lpf (0 - 2); Urine Mucus FEW (None Seen); Urine Specific Gravity 1.023 (1.001-1.035); Urine WBC 12 /hpf (0 - 5)
[2022-09-06 08:55] LABS: Free T4 (Free Thyroxine) 1.3 ng/dL (0.89-1.76)
[2022-09-06 08:56] LABS: Free T3 3.29 pg/mL (2.3-4.2)
== END | disposition home or self-care (01) ==
LOC: LAB 07:51
PROVIDERS: ATTEND Internal Medicine
DX: R82.90 Unspecified abnormal findings in urine (principal)
CPT/HCPCS: 36415; 81001; 84439; 84443; 84481

== ENCOUNTER → 2022-12-23 | Outpatient (CLI) | payer OTHER ==
[2022-12-23 09:24] LABS: Basophils # (auto) 0.1 10 ^3/uL (0-0.2); Basophils % (auto) 0.7 % (0.0-2.0); Eosinophils # (auto) 0.2 10 ^3/uL (0-0.8); Eosinophils % (auto) 1.9 % (0.0-7.0); Hematocrit 41.8 % (36.0-46.0); Hemoglobin 13.8 g/dL (12.2-16.2); Lymphocytes # (auto) 1.5 10 ^3/uL (0.4-5.4); Lymphocytes % (auto) 17.3 % (10.0-50.0); Mean Corpuscular Hemoglobin 30.8 pg (28.0-32.0); Mean Corpuscular Hgb Conc. 33.1 g/dL (32.0-36.0); Mean Corpuscular Volume 92.9 fL (80.0-100.0); Monocytes # (auto) 0.5 10 ^3/uL (0-1.3); Monocytes % (auto) 5.6 % (0.0-12.0); Neutrophils # (auto) 6.4 10 ^3/uL (1.6-8.6); Neutrophils % (auto) 74.5 % (37.0-80.0); Red Blood Cells 4.49 10^6/uL (4.0-5.20); Red Cell Distribution Width 14.1 % (11.8-14.3); White Blood Cell 8.6 10^3/uL (4.4-10.8)
[2022-12-23 10:01] LABS: Alanine Aminotransferase 22 U/L (7-40); Albumin 4.2 g/dL (3.2-4.8); Alkaline Phosphatase 121 U/L (46-116); Anion Gap 6 (5-15); Aspartate Aminotransferase 13 U/L (13-40); BUN/Creatinine Ratio 18.8 (10.0-20.0); Bilirubin, Total 0.8 mg/dL (0.2-1.0); Blood Urea Nitrogen 12 mg/dL (9-23); Carbon Dioxide 29 mmol/L (20-30); Chloride 109 mmol/L (98-107); Glucose 99 mg/dL (74-106); Potassium 3.8 mmol/L (3.5-5.1); Sodium 144 mmol/L (136-145); Total Protein 6.9 g/dL (5.7-8.2)
== END | disposition home or self-care (01) ==
LOC: LAB 09:14
PROVIDERS: ATTEND Internal Medicine Rheumatology
DX: K50.919 Crohn's disease, unspecified, with unspecified complications (principal); N20.0 Calculus of kidney; I10 Essential (primary) hypertension
CPT/HCPCS: 36415; 80053; 85025

== ENCOUNTER 2023-01-07 18:49 | Emergency (ER) | payer OTHER ==
[~2023-01-07] VITALS: Ht 152.4 cm; Wt 91.0 kg
[2023-01-07 19:34] LABS: Basophils # (auto) 0.1 10 ^3/uL (0-0.2); Basophils % (auto) 0.8 % (0.0-2.0); Eosinophils # (auto) 0.3 10 ^3/uL (0-0.8); Eosinophils % (auto) 2.6 % (0.0-7.0); Hematocrit 41.1 % (36.0-46.0); Hemoglobin 13.3 g/dL (12.2-16.2); Lymphocytes # (auto) 1.8 10 ^3/uL (0.4-5.4); Mean Corpuscular Hemoglobin 30.6 pg (28.0-32.0); Mean Corpuscular Hgb Conc. 32.4 g/dL (32.0-36.0); Mean Corpuscular Volume 94.3 fL (80.0-100.0); Monocytes # (auto) 0.7 10 ^3/uL (0-1.3); Monocytes % (auto) 6.2 % (0.0-12.0); Neutrophils # (auto) 7.9 10 ^3/uL (1.6-8.6); Neutrophils % (auto) 73.4 % (37.0-80.0); Red Blood Cells 4.35 10^6/uL (4.0-5.20); Red Cell Distribution Width 14.1 % (11.8-14.3); White Blood Cell 10.7 10^3/uL (4.4-10.8)
[2023-01-07 19:41] LABS: Urine Bacteria NONE SEEN /hpf (None Seen); Urine Blood Negative /uL (Negative); Urine Clarity Clear (Clear); Urine Color Yellow (Yellow); Urine Hyaline Cast FEW /lpf (0 - 2); Urine Protein, UAD Negative (Negative); Urine Specific Gravity 1.027 (1.001-1.035); Urine Urobilinogen Normal (Negative); Urine WBC 5 /hpf (0 - 5); Urine pH 5.5 (5.0-8.0)
[2023-01-07 19:53] LABS: Alanine Aminotransferase 17 U/L (7-40); Albumin 4.3 g/dL (3.2-4.8); Alkaline Phosphatase 141 U/L (46-116); Anion Gap 7 (5-15); Aspartate Aminotransferase 15 U/L (13-40); BUN/Creatinine Ratio 19.4 (10.0-20.0); Bilirubin, Total 0.4 mg/dL (0.2-1.0); Blood Urea Nitrogen 12 mg/dL (9-23); Carbon Dioxide 24 mmol/L (20-30); Chloride 111 mmol/L (98-107); Glucose 99 mg/dL (74-106); Potassium 3.7 mmol/L (3.5-5.1); Sodium 142 mmol/L (136-145); Total Protein 6.9 g/dL (5.7-8.2)
[2023-01-07] MEDS ORDERED: ONDANSETRON ODT 4 MG TAB PO ONE (20:15)
[2023-01-07] MEDS ORDERED: HYDROcodone-ACET 10/325MG TAB PO ONE (20:15)
[2023-01-08] MEDS ORDERED: levoFLOXacin 250 MG TAB PO ONE (01:30)
[2023-01-08] MEDS ORDERED: DOXYCYCLINE 100 MG TAB/CAP PO ONE (01:30)
[2023-01-08] MEDS ORDERED: CYCL-837 PO (01:33)
[2023-01-08] MEDS ORDERED: NAPR-746 PO (01:33)
[2023-01-08] MEDS ORDERED: LEVO750T40 PO (01:33)
[2023-01-08] MEDS ORDERED: ACET-6 PO (01:33)
[2023-01-08] MEDS ORDERED: DOXY-286 PO (01:33)
[2023-01-08 01:52] VITALS: BP 129/62; PULSE 80; RESP 18; TEMP 97.6; O2SAT 95
== END 2023-01-08 01:52 | disposition home or self-care (01) ==
LOC: ER 18:49
DX: N20.0 Calculus of kidney (principal); N39.0 Urinary tract infection, site not specified; R10.9 Unspecified abdominal pain; I10 Essential (primary) hypertension; J45.909 Unspecified asthma, uncomplicated; Z98.890 Other specified postprocedural states; Z88.8 Allergy status to other drugs, medicaments and biological substances; Z79.899 Other long term (current) drug therapy
CPT/HCPCS: 36415; 71045; 74176; 80053; 81001; 84484; 85025; 93005; 99285; Q0162

== ENCOUNTER → 2023-06-14 | Outpatient (CLI) | payer OTHER ==
[~2023-06-14] MED LIST changes: +ACET-6 PO; +AZAT50TA35 PO; -AZAT50TA6 PO; +CYCL-837 PO; +DOXY-286 PO; +LEVO750T40 PO; +NAPR-746 PO
[2023-06-14 12:07] LABS: Basophils # (auto) 0.1 10 ^3/uL (0-0.2); Basophils % (auto) 0.8 % (0.0-2.0); Eosinophils # (auto) 0.1 10 ^3/uL (0-0.8); Eosinophils % (auto) 1.4 % (0.0-7.0); Hematocrit 42.1 % (36.0-46.0); Hemoglobin 13.5 g/dL (12.2-16.2); Lymphocytes # (auto) 1.5 10 ^3/uL (0.4-5.4); Lymphocytes % (auto) 16.2 % (10.0-50.0); Mean Corpuscular Hemoglobin 29.3 pg (28.0-32.0); Mean Corpuscular Volume 91.5 fL (80.0-100.0); Monocytes # (auto) 0.5 10 ^3/uL (0-1.3); Monocytes % (auto) 5.5 % (0.0-12.0); Neutrophils # (auto) 7.2 10 ^3/uL (1.6-8.6); Neutrophils % (auto) 76.1 % (37.0-80.0); Nucleated Red Blood Cells % 0.1 %; Red Blood Cells 4.61 10^6/uL (4.0-5.20); Red Cell Distribution Width 14.3 % (11.8-14.3); White Blood Cell 9.4 10^3/uL (4.4-10.8)
[2023-06-14 12:18] LABS: Alanine Aminotransferase 26 U/L (7-40); Alkaline Phosphatase 131 U/L (46-116); Anion Gap 7 (5-15); BUN/Creatinine Ratio 13.6 (10.0-20.0); Blood Urea Nitrogen 11 mg/dL (9-23); Calcium 9.6 mg/dL (8.5-10.1); Carbon Dioxide 28 mmol/L (20-30); Chloride 108 mmol/L (98-107); Glucose 98 mg/dL (74-106); Potassium 4.5 mmol/L (3.5-5.1); Sodium 143 mmol/L (136-145)
[2023-06-14 12:19] LABS: Aspartate Aminotransferase 42 U/L (13-40)
[2023-06-14 12:20] LABS: Bilirubin, Total 0.5 mg/dL (0.2-1.0)
== END | disposition home or self-care (01) ==
LOC: LAB 10:59
PROVIDERS: ATTEND Internal Medicine Rheumatology
DX: K50.919 Crohn's disease, unspecified, with unspecified complications (principal); Z79.899 Other long term (current) drug therapy
CPT/HCPCS: 36415; 80053; 85025

== ENCOUNTER → 2023-10-24 | Outpatient (CLI) | payer OTHER | END | disposition home or self-care (01) | LOC: LAB 12:10 | PROVIDERS: ATTEND Internal Medicine | DX: E55.9 Vitamin D deficiency, unspecified (principal) | CPT/HCPCS: 82306 ==

== ENCOUNTER 2023-10-26 06:42 | Day surgery (SDC) | payer OTHER ==
[2023-10-24 12:36] LABS: Basophils # (auto) 0.1 10 ^3/uL (0-0.2); Basophils % (auto) 0.9 % (0.0-2.0); Eosinophils # (auto) 0.3 10 ^3/uL (0-0.8); Eosinophils % (auto) 3.4 % (0.0-7.0); Hematocrit 42.7 % (36.0-46.0); Hemoglobin 14.5 g/dL (12.2-16.2); Lymphocytes # (auto) 1.6 10 ^3/uL (0.4-5.4); Lymphocytes % (auto) 17.2 % (10.0-50.0); Mean Corpuscular Hemoglobin 31.5 pg (28.0-32.0); Mean Corpuscular Volume 92.8 fL (80.0-100.0); Monocytes # (auto) 0.5 10 ^3/uL (0-1.3); Monocytes % (auto) 5.6 % (0.0-12.0); Neutrophils # (auto) 6.8 10 ^3/uL (1.6-8.6); Neutrophils % (auto) 72.9 % (37.0-80.0); Platelet Count (auto) 320 10^3/uL (140-450); Red Blood Cells 4.59 10^6/uL (4.0-5.20); Red Cell Distribution Width 14.2 % (11.8-14.3); White Blood Cell 9.3 10^3/uL (4.4-10.8)
[2023-10-24 12:59] LABS: INR 0.98 (0.9-1.15); Partial Thromboplastin Time 27.5 SEC (24.5-34.5); Prothrombin Time 10.4 sec (9.3-11.8)
[2023-10-24 13:22] LABS: Urine Bacteria None Seen /hpf (None Seen); Urine Blood Negative /uL (Negative); Urine Clarity Clear (Clear); Urine Color Yellow (Yellow); Urine Hyaline Cast FEW /lpf (0 - 2); Urine Mucus FEW (None Seen); Urine Protein, UAD Negative (Negative); Urine Specific Gravity 1.023 (1.001-1.035); Urine Urobilinogen Normal (Negative); Urine WBC 3 /hpf (0 - 5); Urine pH 5.5 (5.0-9.0)
[2023-10-24 13:26] LABS: Alanine Aminotransferase 17 U/L (7-40); Albumin 4.4 g/dL (3.2-4.8); Alkaline Phosphatase 133 U/L (46-116); Anion Gap 6 (5-15); Aspartate Aminotransferase 14 U/L (13-40); BUN/Creatinine Ratio 12.5 (10.0-20.0); Blood Urea Nitrogen 8 mg/dL (9-23); Calcium 9.8 mg/dL (8.7-10.4); Carbon Dioxide 28 mmol/L (20-30); Chloride 109 mmol/L (98-107); Glucose 96 mg/dL (74-106); Potassium 3.6 mmol/L (3.5-5.1); Sodium 143 mmol/L (136-145)
[2023-10-24 13:27] LABS: Bilirubin, Total 0.9 mg/dL (0.2-1.0); Total Protein 7.4 g/dL (5.7-8.2)
[~2023-10-26] VITALS: Ht 157.5 cm; Wt 95.3 kg
[~2023-10-26 06:42] MED LIST changes: -CYCL-837 PO; -DOXY-286 PO; -FERR-7 PO; -HYDR-4072 PO; -INFL100I IV; -LEVO750T40 PO; -NAPR-746 PO
[2023-10-26] MEDS ORDERED: fentaNYL CITRATE 100 MCG/2 ML VL ONE (09:46)
[2023-10-26] MEDS ORDERED: PROPOFOL 10 MG/ML 20 ML IV ONE (09:47)
[2023-10-26] MEDS ORDERED: CIPROFLOXACIN 400MG/200ML 200 ML IV ONE (11:33)
[2023-10-26] MEDS ORDERED: DexAMETHasone SOD PHOS 10MG/1ML VIAL INJ ONE (11:48)
[2023-10-26] MEDS ORDERED: ONDANSETRON HCL 4 MG/2 ML VIAL ONE (11:48)
[2023-10-26] MEDS ORDERED: ePHEDrine SULFATE 50 MG/ML AMP ONE (11:55)
[2023-10-26 12:04] VITALS: PULSE 111; RESP 14; TEMP 98.3; O2SAT 95
[2023-10-26] MEDS: ONDANSETRON HCL 4 MG/2 ML VIAL IV ONE (12:45)
[2023-10-26 12:50] VITALS: BP 133/83; PULSE 87; RESP 15; O2SAT 94
== END 2023-10-26 13:05 | disposition home or self-care (01) ==
LOC: SUR 06:42
PROVIDERS: ATTEND Urology
DX: N20.0 Calculus of kidney (principal); I10 Essential (primary) hypertension; J45.909 Unspecified asthma, uncomplicated; K21.9 Gastro-esophageal reflux disease without esophagitis; E66.01 Morbid (severe) obesity due to excess calories; Z68.38 Body mass index [BMI] 38.0-38.9, adult; Z88.2 Allergy status to sulfonamides; Z88.8 Allergy status to other drugs, medicaments and biological substances
CPT/HCPCS: 36415; 50590; 80053; 81001; 85025; 85610; 85730; 87086; C1769; J0744; J1100; J2405; J2704; J3010; J7030

== ENCOUNTER → 2024-01-09 | Outpatient (CLI) | payer OTHER ==
[2024-01-09 09:12] LABS: Basophils # (auto) 0 10 ^3/uL (0-0.2); Basophils % (auto) 0.6 % (0.0-2.0); Eosinophils # (auto) 0.2 10 ^3/uL (0-0.8); Eosinophils % (auto) 2.7 % (0.0-7.0); Hematocrit 41.6 % (36.0-46.0); Hemoglobin 13.9 g/dL (12.2-16.2); Lymphocytes # (auto) 1.3 10 ^3/uL (0.4-5.4); Lymphocytes % (auto) 16.5 % (10.0-50.0); Mean Corpuscular Hemoglobin 30.3 pg (28.0-32.0); Mean Corpuscular Hgb Conc. 33.4 g/dL (32.0-36.0); Monocytes # (auto) 0.5 10 ^3/uL (0-1.3); Monocytes % (auto) 6.5 % (0.0-12.0); Neutrophils # (auto) 5.7 10 ^3/uL (1.6-8.6); Neutrophils % (auto) 73.7 % (37.0-80.0); Nucleated Red Blood Cells % 0.1 %; Platelet Count (auto) 294 10^3/uL (140-450); Red Blood Cells 4.57 10^6/uL (4.0-5.20); Red Cell Distribution Width 14.3 % (11.8-14.3); White Blood Cell 7.8 10^3/uL (4.4-10.8)
[2024-01-09 09:30] LABS: Alanine Aminotransferase 15 U/L (7-40); Albumin 3.9 g/dL (3.2-4.8); Alkaline Phosphatase 136 U/L (46-116); Anion Gap 6 (5-15); BUN/Creatinine Ratio 15.2 (10.0-20.0); Blood Urea Nitrogen 10 mg/dL (9-23); Calcium 9.9 mg/dL (8.7-10.4); Carbon Dioxide 31 mmol/L (20-31); Chloride 106 mmol/L (98-107); Glucose 94 mg/dL (74-106); Potassium 4.5 mmol/L (3.5-5.1); Sodium 143 mmol/L (136-145)
[2024-01-09 09:31] LABS: Aspartate Aminotransferase 12 U/L (13-40); Bilirubin, Total 0.7 mg/dL (0.2-1.0); Total Protein 6.6 g/dL (5.7-8.2)
[2024-01-09 10:04] LABS: Erythrocyte Sedimentation Rate 9 mm/hr (0-20)
== END | disposition home or self-care (01) ==
LOC: LAB 08:31
PROVIDERS: ATTEND Internal Medicine Rheumatology
DX: K50.919 Crohn's disease, unspecified, with unspecified complications (principal); Z79.899 Other long term (current) drug therapy
CPT/HCPCS: 36415; 80053; 85025; 85652; 86141

== ENCOUNTER → 2024-03-13 | Outpatient (CLI) | payer OTHER ==
[2024-03-13 08:03] LABS: Basophils # (auto) 0.1 10 ^3/uL (0-0.2); Eosinophils # (auto) 0.2 10 ^3/uL (0-0.8); Eosinophils % (auto) 2.4 % (0.0-7.0); Hematocrit 42.8 % (36.0-46.0); Hemoglobin 14.3 g/dL (12.2-16.2); Lymphocytes # (auto) 1.6 10 ^3/uL (0.4-5.4); Lymphocytes % (auto) 18.8 % (10.0-50.0); Mean Corpuscular Hemoglobin 30.7 pg (28.0-32.0); Mean Corpuscular Hgb Conc. 33.3 g/dL (32.0-36.0); Mean Corpuscular Volume 92.1 fL (80.0-100.0); Monocytes # (auto) 0.6 10 ^3/uL (0-1.3); Monocytes % (auto) 7.4 % (0.0-12.0); Neutrophils # (auto) 5.9 10 ^3/uL (1.6-8.6); Neutrophils % (auto) 70.4 % (37.0-80.0); Platelet Count (auto) 311 10^3/uL (140-450); Red Blood Cells 4.65 10^6/uL (4.0-5.20); Red Cell Distribution Width 15.6 % (11.8-14.3); White Blood Cell 8.4 10^3/uL (4.4-10.8)
[2024-03-13 08:32] LABS: Alanine Aminotransferase 18 U/L (7-40); Albumin 4.3 g/dL (3.2-4.8); Anion Gap 6 (5-15); Bilirubin, Total 0.6 mg/dL (0.2-1.0); Blood Urea Nitrogen 17 mg/dL (9-23); Calcium 9.7 mg/dL (8.7-10.4); Carbon Dioxide 28 mmol/L (20-31); Cholesterol 161 mg/dL (< 200); Glucose 98 mg/dL (74-106); HDL Cholesterol 60 mg/dL (40-59); LDL Cholesterol 92 mg/dL (< 100); Potassium 4.3 mmol/L (3.5-5.1); Sodium 141 mmol/L (136-145); Triglycerides 89 mg/dL (< 150)
[2024-03-13 08:33] LABS: Alkaline Phosphatase 124 U/L (46-116); Aspartate Aminotransferase 11 U/L (13-40); Chloride 107 mmol/L (98-107); Total Protein 6.9 g/dL (5.7-8.2)
[2024-03-13 08:34] LABS: Urine Bacteria FEW /hpf (None Seen); Urine Blood Negative /uL (Negative); Urine Clarity Clear (Clear); Urine Color Yellow (Yellow); Urine Mucus FEW (None Seen); Urine Protein, UAD Negative (Negative); Urine Specific Gravity 1.026 (1.001-1.035); Urine Squamous Epithelial Cell FEW /hpf (<5); Urine Urobilinogen Normal (Negative); Urine WBC 3 /HPF (0-5); Urine pH 5.5 (5.0-9.0)
== END | disposition home or self-care (01) ==
LOC: LAB 07:08
PROVIDERS: ATTEND Internal Medicine
DX: Z13.1 Encounter for screening for diabetes mellitus (principal); Z00.01 Encounter for general adult medical examination with abnormal findings; I70.0 Atherosclerosis of aorta; N20.0 Calculus of kidney; R79.89 Other specified abnormal findings of blood chemistry; E66.01 Morbid (severe) obesity due to excess calories
CPT/HCPCS: 36415; 80053; 80061; 81001; 83036; 84439; 84443; 85025; 87086

== ENCOUNTER 2024-04-25 09:31 | Day surgery (SDC) | payer OTHER ==
[2024-04-24 13:06] LABS: Basophils # (auto) 0.1 10 ^3/uL (0-0.2); Basophils % (auto) 0.8 % (0.0-2.0); Eosinophils # (auto) 0.3 10 ^3/uL (0-0.8); Eosinophils % (auto) 2.8 % (0.0-7.0); Hematocrit 43.4 % (36.0-46.0); Hemoglobin 14.5 g/dL (12.2-16.2); Lymphocytes # (auto) 1.7 10 ^3/uL (0.4-5.4); Lymphocytes % (auto) 18.5 % (10.0-50.0); Mean Corpuscular Hgb Conc. 33.5 g/dL (32.0-36.0); Mean Corpuscular Volume 92.5 fL (80.0-100.0); Monocytes # (auto) 0.5 10 ^3/uL (0-1.3); Monocytes % (auto) 5.8 % (0.0-12.0); Neutrophils # (auto) 6.7 10 ^3/uL (1.6-8.6); Neutrophils % (auto) 72.1 % (37.0-80.0); Platelet Count (auto) 349 10^3/uL (140-450); Red Blood Cells 4.69 10^6/uL (4.0-5.20); Red Cell Distribution Width 14.6 % (11.8-14.3); White Blood Cell 9.3 10^3/uL (4.4-10.8)
[2024-04-24 13:14] LABS: Urine Bacteria FEW /hpf (None Seen); Urine Blood Negative /uL (Negative); Urine Clarity Turbid (Clear); Urine Color Yellow (Yellow); Urine Mucus FEW (None Seen); Urine Protein, UAD Negative (Negative); Urine Specific Gravity 1.025 (1.001-1.035); Urine Squamous Epithelial Cell MOD /hpf (<5); Urine Urobilinogen Normal (Negative); Urine WBC 38 /HPF (0-5)
[2024-04-24 13:18] LABS: INR 0.98 (0.9-1.15); Partial Thromboplastin Time 27.7 SEC (24.5-34.5); Prothrombin Time 10.4 sec (9.3-11.8)
[2024-04-24 13:50] LABS: Alanine Aminotransferase 17 U/L (7-40); Albumin 4.3 g/dL (3.2-4.8); Anion Gap 7 (5-15); Aspartate Aminotransferase 14 U/L (13-40); BUN/Creatinine Ratio 15.3 (10.0-20.0); Blood Urea Nitrogen 11 mg/dL (9-23); Calcium 9.7 mg/dL (8.7-10.4); Carbon Dioxide 29 mmol/L (20-31); Potassium 3.9 mmol/L (3.5-5.1); Sodium 145 mmol/L (136-145)
[2024-04-24 13:51] LABS: Bilirubin, Total 0.4 mg/dL (0.2-1.0)
[2024-04-24 13:54] LABS: Alkaline Phosphatase 143 U/L (46-116); Chloride 109 mmol/L (98-107); Glucose 108 mg/dL (74-106)
[~2024-04-25] VITALS: Ht 157.5 cm; Wt 95.3 kg
[~2024-04-25 09:31] MED LIST changes: +DIGECAP3 OR; +INFL100I IV; +MAGN1CAP2 PO; -MULT-1018 OR; +POTA-36 PO; +PROB1CHW27 PO; +VITA1CAP PO; +ZINC50TA7 PO
[2024-04-25] MEDS ORDERED: CIPROFLOXACIN 400MG/200ML 200 ML IV ONE (10:08)
[2024-04-25] MEDS ORDERED: KETAMINE 50mg/ML 1ml syringe ONE (11:46)
[2024-04-25] MEDS ORDERED: fentaNYL CITRATE 100 MCG/2 ML VL ONE (11:46)
[2024-04-25] MEDS ORDERED: MIDAZOLAM HCL 2MG/2ML 2ml VIAL (1mg/ml) ONE (11:47)
[2024-04-25] MEDS ORDERED: DexAMETHasone SOD PHOS 10MG/1ML VIAL INJ ONE (11:47)
[2024-04-25] MEDS ORDERED: ONDANSETRON HCL 4 MG/2 ML VIAL ONE (11:47)
[2024-04-25] MEDS ORDERED: GLYCOPYRROLATE 0.2 MG/ML 1ML VIAL ONE (11:47)
[2024-04-25] MEDS ORDERED: LIDOCAINE 2% (LOCAL ANESTH.) PF 5ml SDV ONE (11:47)
[2024-04-25] MEDS ORDERED: KETOROLAC TROMETH 30 MG/ML 1ML VIAL ONE (11:47)
[2024-04-25] MEDS ORDERED: PROPOFOL 10 MG/ML 20 ML IV ONE (11:47)
--- NOTE | 2024-04-25 12:08 | DVHNC2 ---
Procedure - OPERATIVE REPORT Pre-op. Diagnosis: Renal Stone Post-op. Diagnosis: Same as pre-op diagnosis Operation: Extracorporeal Shockwave Lithotripsy Anesthesia: General Indications: Patient was found to have symptomatic Urolithiasis. Patient is here to undergo ESWL therapy. Informed Consent: The procedure was explained to the patient. It's risks include but not limited to infection, bleeding, and damage to the kidney. Patient fully understood and signed the consent. Other options such as watchful waiting, Ureteroscopy, Percutaneous surgery and open surgery were also discussed. Details of Procedure: Under satisfactory anesthesia, the patient was positioned on the lithotripsy table. Using fluoroscopy the stone was localized. Starting at low energy levels, shockwave treatment was commenced. The energy level was gradually increased and stone was fragmented. Once the treatment was completed, patient was then taken off the lithotripsy table and sent to recovery room in stable condition. Specimens: None Complications: None Findings: Stone Laterality: right lower pole renal stone, 7 mm Shocks Delivered: 2400 [employer] settin Fragmentation Quality: Well Notes: Visit Code: Procedure Codes: 49913 FRAGMENTING OF KIDNEY STONE. AMA PARKER MD Apr 25, 2024 12:08
--- NOTE | 2024-04-25 12:09 | DVHDS2 ---
New Physician D'charge PN Admitting Diagnosis Admitting Diagnosis Right renal lithiasis Discharge Diagnosis Same Operations or Procedures Right ESWL Reason(s) For Hospitalization Surgery Treatment Plan Discharge Condition of Discharge Good Disposition Home Discharge Instructions Diet: Regular Activity: Light activity Activity comment: As tolerated Medications: Given Follow Up Care Follow Up/Referral: Follow up two weeks with [facility] Discharge Statement: "Patient was advised to return to the ER or call 911 if any headaches, dizziness, shortness of breath, chest pain, abdominal pain, bleeding, fevers, or worsening of medical condition. Patient was counseled about treatment plan, medications, possible side effects, patientverbalized understanding. All questions were answered to the best of my ability. This discharge took greater then 30 minutes in planning, reviewing documentation, counseling the patient, and discussing with other team members." AMA PARKER MD Apr 25, 2024 12:09
[2024-04-25] MEDS ORDERED: IOHEXOL 300 MG/ML 100ML BOTTLE IJ ONE (12:36)
[2024-04-25] MEDS ORDERED: HYDROCORTISONE SOD SUCC 100 MG/2ML INJ VIAL ONE (12:38)
[2024-04-25 13:26] VITALS: PULSE 88; RESP 11; TEMP 98.3; O2SAT 100
[2024-04-25] MEDS ORDERED: HYDROmorphone HCL 2 MG/ML VL/or syr IV PRN (13:30)
[2024-04-25 13:31] VITALS: PULSE 83; RESP 11; O2SAT 100
[2024-04-25 13:46] VITALS: BP 141/84; PULSE 94; RESP 11; O2SAT 95
== END 2024-04-25 14:07 | disposition home or self-care (01) ==
LOC: SUR 09:31
PROVIDERS: ATTEND Urology
DX: N20.0 Calculus of kidney (principal); J45.909 Unspecified asthma, uncomplicated; I10 Essential (primary) hypertension; Z98.890 Other specified postprocedural states; Z90.710 Acquired absence of both cervix and uterus; Z88.2 Allergy status to sulfonamides; Z88.1 Allergy status to other antibiotic agents; Z88.8 Allergy status to other drugs, medicaments and biological substances; Z79.899 Other long term (current) drug therapy
CPT/HCPCS: 36415; 50590; 80053; 81001; 85025; 85610; 85730; 87086; J0744; J1100; J1720; J1885; J2003; J2250; J2405; J2704; J3010; J7030

== ENCOUNTER → 2024-05-07 | Outpatient (CLI) | payer OTHER ==
[2024-05-07 09:10] LABS: Basophils # (auto) 0.1 10 ^3/uL (0-0.2); Basophils % (auto) 1.3 % (0.0-2.0); Eosinophils # (auto) 0.2 10 ^3/uL (0-0.8); Eosinophils % (auto) 3.6 % (0.0-7.0); Hematocrit 41.2 % (36.0-46.0); Hemoglobin 14.2 g/dL (12.2-16.2); Lymphocytes # (auto) 1.3 10 ^3/uL (0.4-5.4); Lymphocytes % (auto) 18.3 % (10.0-50.0); Mean Corpuscular Hemoglobin 31.8 pg (28.0-32.0); Mean Corpuscular Hgb Conc. 34.5 g/dL (32.0-36.0); Mean Corpuscular Volume 92.3 fL (80.0-100.0); Monocytes # (auto) 0.5 10 ^3/uL (0-1.3); Monocytes % (auto) 6.6 % (0.0-12.0); Neutrophils # (auto) 4.8 10 ^3/uL (1.6-8.6); Neutrophils % (auto) 70.2 % (37.0-80.0); Platelet Count (auto) 329 10^3/uL (140-450); Red Blood Cells 4.46 10^6/uL (4.0-5.20); Red Cell Distribution Width 14.7 % (11.8-14.3); White Blood Cell 6.9 10^3/uL (4.4-10.8)
[2024-05-07 09:42] LABS: Erythrocyte Sedimentation Rate 7 mm/hr (0-20)
[2024-05-07 10:16] LABS: Alanine Aminotransferase 22 U/L (7-40); Albumin 4.2 g/dL (3.2-4.8); Aspartate Aminotransferase 16 U/L (13-40); BUN/Creatinine Ratio 18.1 (10.0-20.0); Blood Urea Nitrogen 13 mg/dL (9-23); CRP High Sensitivity 0.07 mg/dL (<1.0); Calcium 9.4 mg/dL (8.7-10.4); Carbon Dioxide 26 mmol/L (20-31); Glucose 96 mg/dL (74-106); Potassium 3.5 mmol/L (3.5-5.1); Sodium 142 mmol/L (136-145)
[2024-05-07 10:17] LABS: Alkaline Phosphatase 126 U/L (46-116); Bilirubin, Total 0.4 mg/dL (0.2-1.0)
[2024-05-07 10:31] LABS: Anion Gap 6 (5-15)
[2024-05-07 10:35] LABS: Chloride 110 mmol/L (98-107)
[2024-05-08 06:06] LABS: Thyrotropin Receptor Antibody <1.10 IU/L (0.00-1.75)
== END | disposition home or self-care (01) ==
LOC: LAB 08:46
PROVIDERS: ATTEND Internal Medicine Endocrinology, Diabetes & Metabolism
DX: E55.9 Vitamin D deficiency, unspecified (principal); E05.90 Thyrotoxicosis, unspecified without thyrotoxic crisis or storm; K50.919 Crohn's disease, unspecified, with unspecified complications; Z79.899 Other long term (current) drug therapy
CPT/HCPCS: 36415; 80053; 82306; 84439; 84443; 84445; 85025; 85652; 86141

== ENCOUNTER 2024-06-20 09:56 | Inpatient (IN) | payer OTHER ==
[2024-06-18 09:32] LABS: Urine Bacteria None Seen /hpf (None Seen)
[2024-06-18 09:51] LABS: Basophils # (auto) 0.1 10 ^3/uL (0-0.2); Basophils % (auto) 0.8 % (0.0-2.0); Eosinophils # (auto) 0.2 10 ^3/uL (0-0.8); Hematocrit 41.7 % (36.0-46.0); Hemoglobin 14.1 g/dL (12.2-16.2); Lymphocytes # (auto) 1.3 10 ^3/uL (0.4-5.4); Lymphocytes % (auto) 15.9 % (10.0-50.0); Mean Corpuscular Hemoglobin 30.7 pg (28.0-32.0); Mean Corpuscular Hgb Conc. 33.7 g/dL (32.0-36.0); Mean Corpuscular Volume 91.1 fL (80.0-100.0); Monocytes # (auto) 0.5 10 ^3/uL (0-1.3); Monocytes % (auto) 6.7 % (0.0-12.0); Neutrophils % (auto) 74.6 % (37.0-80.0); Platelet Count (auto) 287 10^3/uL (140-450); Red Blood Cells 4.58 10^6/uL (4.0-5.20); Red Cell Distribution Width 14.4 % (11.8-14.3)
[2024-06-18 10:08] LABS: Alanine Aminotransferase 22 U/L (7-40); Anion Gap 8 (5-15); Aspartate Aminotransferase 15 U/L (13-40); Blood Urea Nitrogen 13 mg/dL (9-23); Calcium 9.7 mg/dL (8.7-10.4); Carbon Dioxide 30 mmol/L (20-31); Chloride 105 mmol/L (98-107); Glucose 97 mg/dL (74-106); Potassium 3.9 mmol/L (3.5-5.1); Sodium 143 mmol/L (136-145)
[2024-06-18 10:09] LABS: Albumin 4.3 g/dL (3.2-4.8); Bilirubin, Total 0.6 mg/dL (0.2-1.0)
[2024-06-18 10:13] LABS: INR 0.93 (0.9-1.15); Partial Thromboplastin Time 26.8 SEC (24.5-34.5); Prothrombin Time 9.9 sec (9.3-11.8)
[2024-06-18 10:18] LABS: Alkaline Phosphatase 122 U/L (46-116); Urine Blood Negative /uL (Negative); Urine Clarity Clear (Clear); Urine Color Light-Yellow (Yellow); Urine Protein, UAD Negative (Negative); Urine Specific Gravity 1.011 (1.001-1.035); Urine Squamous Epithelial Cell FEW /hpf (<5); Urine Urobilinogen Normal (Negative); Urine WBC 1 /HPF (0-5); Urine pH 5.5 (5.0-9.0)
[2024-06-20] VITALS (7 sets, daily range): BP systolic 126–164; BP diastolic 83–87; PULSE 89–99; RESP 18; TEMP 97.5; O2SAT 96–100
[~2024-06-20] VITALS: Ht 157.5 cm; Wt 99.1 kg
[2024-06-20] MEDS ORDERED: fentaNYL CITRATE 100 MCG/2 ML VL ONE ×2 (11:20→12:37)
[2024-06-20] MEDS ORDERED: MIDAZOLAM HCL 2MG/2ML 2ml VIAL (1mg/ml) ONE (11:21)
[2024-06-20] MEDS: CIPROFLOXACIN 400MG/200ML 200 ML IV ONE (11:45)
[2024-06-20] MEDS: IOHEXOL 300 MG/ML 100ML BOTTLE IJ ONE (11:58)
[2024-06-20] MEDS ORDERED: PROPOFOL 10 MG/ML 20 ML IV ONE (12:02)
[2024-06-20] MEDS ORDERED: DexAMETHasone SOD PHOS 10MG/1ML VIAL INJ ONE (12:02)
[2024-06-20] MEDS ORDERED: ONDANSETRON HCL 4 MG/2 ML VIAL ONE (12:32)
--- NOTE | 2024-06-20 13:23 | DVHNC2 ---
Procedure - OPERATIVE REPORT Pre-op. Diagnosis: Kidney Stone - Right- 1 cm Post-op. Diagnosis: Same as pre-op diagnosis Operation: Right ureteroscopy/pyeloscopy, laser lithotripsy with CVAC system Anesthesia: General Indications: Patient with 8 mm x 10 mm right lower pole non obstructing kidney stone The indications, risks, complications, alternatives and benefits were discussed. All questions were encouraged and answered. Patient is aware of risks/complications including but not limited to infection, bleeding, persistent pain, possible ureteral injury/ureteral stricture requiring additional surgical management, urethral injury, urethral stricture and meatal stenosis. Details of Procedure: After obtaining the consent, patient was taken to OR suite and underwent general anesthesia. Preop antibiotic was given. Timeout was performed and deemed to be correct. With the patient positioned in the lithotomy, the area of the genitalia prepped and draped in usual sterile fashion. 22 F Cystoscope was used to access the urethra and bladder. A right retrograde pyelogram was performed using six [place] open-ended catheter and constrast. filling defect was noted in the right lower pole calyceal system. A sensor tip guide wire was advanced through the scope into the right ureter all the way to the right collecting system under fluoroscopic control. I advanced 12 x 14 Fr 36 cm access sheet over the working wire all the way to the proximal ureter under fluoroscopy control, then the inner sheet and the working wire was removed. The CVAC flexible ureteroscope was advanced through the access sheet. The stones were visualized. Now using a 200 micron laser fiber the stone was blasted into small fragments and suctioned out while in dusting mode. Ureteroscope was then removed . Ureteral sheath was then removed. Ureteral stent was not necessary due to patency of the ureter. Patient was placed in supine position in the OR table. Anesthesia was reversed, patient was extubated and transferred awake and in stable conditions to recovery room. Specimens: renal stone fragments Complications: None AMA PARKER MD June 20, 2024 13:23
--- NOTE | 2024-06-20 13:34 | DVHDS2 ---
New Physician D'charge PN Admitting Diagnosis Admitting Diagnosis Right kidney stone Discharge Diagnosis Same Operations or Procedures Right ureteroscopic laser lithotripsy with renal evacuation Reason(s) For Hospitalization Surgery Treatment Plan Discharge Condition of Discharge Fair Disposition Home Discharge Instructions Diet: Regular Activity: Light activity Activity comment: As tolerated Medications: Given Follow Up Care Follow Up/Referral: Follow up in two weeks with renal ultrasound Discharge Statement: "Patient was advised to return to the ER or call 911 if any headaches, dizziness, shortness of breath, chest pain, abdominal pain, bleeding, fevers, or worsening of medical condition. Patient was counseled about treatment plan, medications, possible side effects, patientverbalized understanding. All questions were answered to the best of my ability. This discharge took greater then 30 minutes in planning, reviewing documentation, counseling the patient, and discussing with other team members." AMA PARKER MD June 20, 2024 13:34
--- NOTE | 2024-06-20 13:48 | DVH ---
XY C ARM FLUOROSCOPY UP TO 60MIN, HISTORY: RIGHT URETERSCOPIC LASER LITHOTRIPSY TECHNICAL DATA: 9 intraoperative fluoroscopic spot images were obtained . COMPARISON: XY C ARM FLUOROSCOPY UP TO 60MIN on DOS: 05/10/22 FINDINGS/IMPRESSION: C-arm fluoroscopic images were obtained for anatomic localization. The images are of low resolution b ut demonstrate instrumentation over the kidney . Total fluoroscopy time was 21 seconds. DAP 6.95. ]P lejennifer see the operative report for further details.
[2024-06-20] MEDS ORDERED: ePHEDrine SULFATE 50 MG/ML AMP IV PRN (14:00)
[2024-06-20] MEDS ORDERED: hydrALAZINE HCL 20 MG/ML VL IV PRN (14:00)
[2024-06-20] MEDS ORDERED: MORPHINE SULFATE 4 MG/ML SYR/VIAL IV PRN (14:00)
[2024-06-20] MEDS ORDERED: MIDAZOLAM HCL 2MG/2ML 2ml VIAL (1mg/ml) IV PRN (14:00)
[2024-06-20] MEDS: ONDANSETRON HCL 4 MG/2 ML VIAL IV ONE (14:50)
[2024-06-20] MEDS: HYDROmorphone HCL 2 MG/ML VL/or syr IV PRN (15:02)
[2024-06-20] MEDS: ACETAMINOPHEN IV 100 ML IV ONE (15:50)
[2024-06-20] MEDS: ACETAMINOPHEN IV 1000 MG/100ML (10MG/ML) IV ONE (15:52)
[2024-06-20] MEDS ORDERED: ACETAMINOPHEN 325 MG TAB PO PRN (17:15)
[2024-06-20] MEDS: SODIUM CHLORIDE 0.9% 1,000 ML IV SCH (17:15)
[2024-06-20] MEDS ORDERED: ONDANSETRON HCL 4 MG/2 ML VIAL IV PRN (17:15)
--- NOTE | 2024-06-20 17:30 | DVHHP2 ---
History of Present Illness Reason for Visit: Right ureteral stone History of Present Illness Laurie Triana is a 60-year-old female with past medical history of hypertension, asthma, Crohn's disease, nephrolithiasis, and hernia repair who presents to the facility with right ureteral stone status post right ureter laser lithotripsy with CVAC. Upon examination in the recovery area, patient reports that her pain is 10/10 cramp like and constant. Patient states that she does not use home oxygen and currently on 2 L nasal cannula. Patient is still having significant pain as well as emesis. Patient denies chest pain, shortness of breath, fever, chills, lightheadedness, weakness, dizziness, diarrhea, or recent trauma or injury. Cardiovascular: HTN Pulmonary: Asthma Past Medical History Crohn's disease Nephrolithiasis Past Surgical History: Hernia Repair Smoke: No ALCOHOL: none Drugs: None Domestic Violence: Neg Review of Systems Gastrointestinal: Nausea, Vomiting, Abdominal Pain Allergies: Coded Allergies: Cefazolin (Verified Allergy, Unknown, hives , 10/26/20) Metronidazole (Verified Allergy, Unknown, 08/28/18) Sulfa Antibiotics (Verified Allergy, Unknown, 08/28/18) Medications Current Medications Medications Dose Ordered Sig/Ted Route Start Time Stop Time Status Last Admin Dose Admin Sodium Chloride 1,000 ml @ 60 mls/hr [id number] IV 06/20/24 17:15 UNV Acetaminophen/ Hydrocodone Bitart 1 tab Q4HP PRN PO 06/20/24 17:15 UNV Ondansetron HCl 4 mg Q4HP PRN IV 06/20/24 17:15 UNV Acetaminophen 650 mg Q6HP PRN PO 06/20/24 17:15 UNV Morphine Sulfate 2 mg Q4HPRN PRN IV 06/20/24 17:15 UNV Azathioprine 50 mg DAILY PO 06/21/24 10:00 UNV Famotidine 40 mg DAILY PO 06/21/24 10:00 UNV Lisinopril 10 mg DAILY PO 06/21/24 10:00 UNV Patient Own Medication 1 mg DAILY PO 06/21/24 10:00 UNV Patient Own Medication 1 cap DAILY PO 06/21/24 10:00 UNV Patient Own Medication 50 mg DAILY PO 06/21/24 10:00 UNV Exam Vital Signs Vital Signs Date Time Temp Pulse Resp B/P (MAP) Pulse Ox O2 Delivery O2 Flow Rate FiO2 06/20/24 13:25 Mask 10.0 96 06/20/24 13:25 96 06/20/24 10:20 97.7 83 18 141/79 (99) 97.7 General Appearance: Alert, Oriented X3, Cooperative, mild distress HEENT: Atraumatic, PERRLA, EOMI, Mucous membr. moist/pink Respiratory: Clear to auscultation, Normal air movement Cardiovascular: Regular rate, Normal S1, Normal S2, No murmurs Abdominal: Normal bowel sounds, Soft Extremities: No clubbing, No cyanosis, No edema, Normal pulses Skin: No significant lesion Neuro: Normal speech, Normal tone, Sensation intact Psych/Mental Status: Mental status NL, Mood NL Labs/Xrays Labs Test 06/20/24 13:00 06/18/24 09:27 Range/Units White Blood Count 8.0 4.4-10.8 10^3/uL Red Blood Count 4.58 4.0-5.20 10^6/uL Hemoglobin 14.1 12.2-16.2 g/dL Hematocrit 41.7 36.0-46.0 % Mean Corpuscular Volume 91.1 80.0-100.0 fL Mean Corpuscular Hemoglobin 30.7 28.0-32.0 pg Mean Corpuscular Hemoglobin Concent 33.7 32.0-36.0 g/dL Red Cell Distribution Width 14.4 H 11.8-14.3 % Platelet Count 287 140-450 10^3/uL Mean Platelet Volume 7.8 6.9-10.8 fL Neutrophils (%) (Auto) 74.6 37.0-80.0 % Lymphocytes (%) (Auto) 15.9 10.0-50.0 % Monocytes (%) (Auto) 6.7 0.0-12.0 % Eosinophils (%) (Auto) 2.0 0.0-7.0 % Basophils (%) (Auto) 0.8 0.0-2.0 % Neutrophils # (Auto) 6.0 1.6-8.6 10 ^3/uL Lymphocytes # (Auto) 1.3 0.4-5.4 10 ^3/uL Monocytes # (Auto) 0.5 0-1.3 10 ^3/uL Eosinophils # (Auto) 0.2 0-0.8 10 ^3/uL Basophils # (Auto) 0.1 0-0.2 10 ^3/uL Nucleated Red Blood Cells 0.0 % Prothrombin Time 9.9 9.3-11.8 sec Prothrombin Time INR 0.93 0.9-1.15 Activated Partial Thromboplast Time 26.8 24.5-34.5 SEC Urine Color Light-yellow Yellow Urine Clarity Clear Clear Urine pH 5.5 5.0-9.0 Urine Specific [place] 1.011 1.001-1.035 Urine Protein Negative Negative Urine Ketones Negative Negative Urine Blood Negative Negative /uL Urine Nitrite Negative Negative Urine Bilirubin Negative Negative Urine Urobilinogen Normal Negative mg/dL Urine Leukocyte Esterase Negative Negative /uL Urine RBC 1 0 - 4 /hpf Urine Microscopic WBC 1 0-5 /HPF Urine Squamous Epithelial Cells Few <5 /hpf Urine Bacteria None seen None Seen /hpf Urine Glucose Normal Normal mg/dL Sodium Level 143 136-145 mmol/L Potassium Level 3.9 3.5-5.1 mmol/L Chloride Level 105 98-107 mmol/L Carbon Dioxide Level 30 20-31 mmol/L Anion Gap 8 5-15 Blood Urea Nitrogen 13 9-23 mg/dL Creatinine 0.65 0.550-1.02 mg/dL Glomerular Filtration Rate Calc 96 >90 mL/min BUN/Creatinine Ratio 20.0 10.0-20.0 Serum Glucose 97 74-106 mg/dL Calcium Level 9.7 8.7-10.4 mg/dL Total Bilirubin 0.6 0.2-1.0 mg/dL Aspartate Amino Transferase (AST) 15 13-40 U/L Alanine Aminotransferase (ALT) 22 7-40 U/L Alkaline Phosphatase 122 H 46-116 U/L Total Protein 7.0 5.7-8.2 g/dL Albumin 4.3 3.2-4.8 g/dL Microbiology Date/Time Source Procedure Growth Status 06/18/24 09:27 Voided Urine Urine Culture - Final Complete Assessment/Plan Assessment/Plan Assessment Right ureteral stone Right ureteroscopy/pyeloscopy, laser lithotripsy with CVAC system Intractable abdominal pain status post procedure Acute hypoxemic respiratory failure History of hypertension History of asthma History of Crohn's disease History of nephrolithiasis History of hernia repair Plan Admit to [facility] Pain management Antiemetics Supportive oxygen Duo nebs p.r.n. Diet Home medications reconciled DVT prophylaxis-SCDs PUD prophylaxis-PPIs Discussed plan of care with patient and nurse Plan discussed with: Patient My Orders Orders - LEXY BRADLEY Procedure Category Date Status Time Complete Blood Count LAB 06/20/24 Logged 17:15 Basic Metabolic Panel LAB 06/20/24 Logged 17:15 Admit ADMIT 06/20/24 Transmitted 17:15 Allergies YOLANDE 06/20/24 In Process 17:15 Code Status CODE 06/20/24 Transmitted 17:15 Sodium Chloride 0.9% PHA 06/20/24 Logged 17:15 Hydrocodone-Acet PHA 06/20/24 Logged 5/325mg Tab (Scott 17:15 Ondansetron Hcl PHA 06/20/24 Logged (Zofran) 17:15 Complete Blood Count LAB 06/21/24 Verified 04:00 Comprehensive LAB 06/21/24 Verified Metabolic Panel 04:00 Cardiac DIET 06/20/24 Transmitted Diet-2gna,Lofat,Lochol Dinner Acetaminophen Tablet PHA 06/20/24 Logged (Tylenol Tablet) 17:15 Morphine Sulfate PHA 06/20/24 Logged Injection 17:15 Prochlorperazine Inj PHA 06/20/24 Logged (Compazine Inj) 17:30 Azathioprine Tablet PHA 06/21/24 Logged (Imuran Tablet) 10:00 Famotidine Tablet PHA 06/21/24 Logged (Pepcid Tablet) 10:00 Lisinopril Tablet PHA 06/21/24 Transmitted (Zestril Tablet) 10:00 (Nf) Folic Acid PHA 06/21/24 Transmitted 10:00 (Nf) Vitamin D & K PHA 06/21/24 Transmitted (K2-D3 Max 180-125 Mc 10:00 (Nf) Zinc Gluconate PHA 06/21/24 Transmitted (Zinc) 10:00 Date of Service: June 20, 2024 Billing Provider: LEXY BRADLEY Common Visit Codes: [id number] INP/OBS CARE (HIGH) LEXY BRADLEY June 20, 2024 17:30
[2024-06-20] MEDS: MORPHINE SULFATE INJ 2 MG/ml SYRG IV PRN (17:46)
[2024-06-20] MEDS: PROCHLORPERAZINE EDISYLATE 5 MG/ML 2ML VIAL IM ONE (18:17)
--- NOTE | 2024-06-20 19:05 | DVH ---
INDICATION: POSTOP PAIN TECHNIQUE: Multiple real-time sonographic images of the kidneys and bladder were obtained. COMPARISON: None FINDINGS: The right kidney measures 10.2 cm in length, which is normal in size. There is normal echogenicity o f the right kidney. Moderate right hydro nephrosis. Nonobstructing right renal calculi. The left kidney measures 11.2 cm in length, which is normal in size. There is normal echogenicity of the left kidney. No hydronephrosis. Left renal simple cysts, largest measuring up to 1.6 cm. Limited evaluation of the urinary bladder due to inadequate distention with sim catheter in place. IMPRESSION: Moderate right hydronephrosis. Nonobstructing right renal calculi. Left renal simple cysts are noted.
[2024-06-20] MEDS: OXYBUTYNIN CHL 5 MG TAB PO ONE (20:29)
[2024-06-20] MEDS: HYDROcodone-ACET 5/325MG TAB PO PRN (20:45)
[2024-06-20] MEDS: ALBUTEROL SULF 2.5 MG/0.5ML(0.5%) NEB SOLN NEB PRN (21:44)
[2024-06-20] MEDS: BUDESONIDE (INHALATION) 0.5 MG/2 ML NEB NEB SCH (21:44)
[2024-06-21] VITALS (9 sets, daily range): BP systolic 103–112; BP diastolic 54–63; PULSE 69–104; RESP 16–20; TEMP 97.5–98.1; O2SAT 91–100
[2024-06-21 06:17] LABS: Basophils # (auto) 0.1 10 ^3/uL (0-0.2); Basophils % (auto) 0.5 % (0.0-2.0); Eosinophils # (auto) 0 10 ^3/uL (0-0.8); Hemoglobin 13.4 g/dL (12.2-16.2); Lymphocytes # (auto) 0.8 10 ^3/uL (0.4-5.4); Lymphocytes % (auto) 7.4 % (10.0-50.0); Mean Corpuscular Hemoglobin 30.5 pg (28.0-32.0); Mean Corpuscular Hgb Conc. 33.4 g/dL (32.0-36.0); Mean Corpuscular Volume 91.4 fL (80.0-100.0); Monocytes # (auto) 0.6 10 ^3/uL (0-1.3); Monocytes % (auto) 5.8 % (0.0-12.0); Neutrophils # (auto) 9.1 10 ^3/uL (1.6-8.6); Neutrophils % (auto) 86.3 % (37.0-80.0); Platelet Count (auto) 275 10^3/uL (140-450); Red Blood Cells 4.38 10^6/uL (4.0-5.20); White Blood Cell 10.5 10^3/uL (4.4-10.8)
[2024-06-21 06:32] LABS: Alanine Aminotransferase 16 U/L (7-40); Albumin 3.7 g/dL (3.2-4.8); Alkaline Phosphatase 105 U/L (46-116); Anion Gap 9 (5-15); Aspartate Aminotransferase 16 U/L (13-40); BUN/Creatinine Ratio 18.5 (10.0-20.0); Bilirubin, Total 0.6 mg/dL (0.2-1.0); Blood Urea Nitrogen 12 mg/dL (9-23); Calcium 8.9 mg/dL (8.7-10.4); Carbon Dioxide 27 mmol/L (20-31); Chloride 107 mmol/L (98-107); Potassium 4.1 mmol/L (3.5-5.1); Sodium 143 mmol/L (136-145)
[2024-06-21 06:49] LABS: Glucose 114 mg/dL (74-106)
[2024-06-21] MEDS: FAMOTIDINE 20 MG TAB PO SCH (09:31)
[2024-06-21] MEDS: ZINC SULFATE 220mg CAP or TAB PO SCH (09:32)
[2024-06-21] MEDS: FOLIC ACID 1 MG TAB PO SCH (09:32)
[2024-06-21] MEDS: LISINOPRIL 20 MG TAB PO SCH (09:34)
[2024-06-21] MEDS: [UNRECOGNIZED DRUG - MIXTURE] PO SCH (09:34)
[2024-06-21] MEDS: azaTHIOprine 50 MG TAB PO SCH (09:35)
--- NOTE | 2024-06-21 15:58 | DVHPN2 ---
Subjective Seen and examined at bedside, for DC HOME TODAY Changes from previous H/P or p: No Changes Gastrointestinal: No Nausea, No Vomiting, No Abdominal Pain, No Diarrhea, No Constipation, No Melena, No Hematochezia, No Other Objective Vitals Vital Signs Date Time Temp Pulse Resp B/P (MAP) Pulse Ox O2 Delivery O2 Flow Rate FiO2 06/21/24 13:00 97.5 83 20 108/55 (72) 91 97.5 06/21/24 08:00 Nasal Cannula* 4 36 Intake/Output Intake and Output 06/21/24 07:00 Intake Total 300 ml Output Total 1200 ml Balance -900 ml Intake Oral 0 ml IV Total 300 ml Output Urine Total 1200 ml General Appearance: Alert, Oriented X3, Cooperative HEENT: Atraumatic Lungs: Clear to auscultation Cardiovascular: Regular rate, Normal S1, Normal S2 Abdomen: Normal bowel sounds, Soft Psych/Mental Status: Mental status NL Medications Current Medications Medications Dose Ordered Sig/Ted Route Start Time Stop Time Status Last Admin Dose Admin Sodium Chloride 1,000 ml @ 60 mls/hr [id number] IV 06/20/24 17:15 06/20/24 17:15 60 MLS/HR Acetaminophen/ Hydrocodone Bitart 1 tab Q4HP PRN PO 06/20/24 17:15 06/20/24 20:45 1 TAB Ondansetron HCl 4 mg Q4HP PRN IV 06/20/24 17:15 Acetaminophen 650 mg Q6HP PRN PO 06/20/24 17:15 Morphine Sulfate 2 mg Q4HPRN PRN IV 06/20/24 17:15 06/20/24 17:46 2 MG Azathioprine 50 mg DAILY PO 06/21/24 10:00 Famotidine 40 mg DAILY PO 06/21/24 10:00 06/21/24 09:31 40 MG Lisinopril 10 mg DAILY PO 06/21/24 10:00 06/21/24 09:34 10 MG Folic Acid 1 mg DAILY PO 06/21/24 10:00 06/21/24 09:32 1 MG Patient Own Medication 1 cap DAILY PO 06/21/24 10:00 Zinc Sulfate 220 mg DAILY PO 06/21/24 10:00 06/21/24 09:32 220 MG Albuterol 2.5 mg Q4HPRN PRN NEB 06/20/24 17:30 06/21/24 06:58 2.5 MG Budesonide 0.5 mg BID NEB 06/20/24 22:00 06/21/24 06:58 0.5 MG Laboratory Results Laboratory Tests 06/21/24 05:27 Chemistry Test 06/21/24 05:27 Albumin 3.7 g/dL (3.2-4.8) Calcium Level 8.9 mg/dL (8.7-10.4) Total Protein 6.0 g/dL (5.7-8.2) LFT Test 06/21/24 05:27 Alanine Aminotransferase (ALT) 16 U/L (7-40) Alkaline Phosphatase 105 U/L (46-116) Aspartate Amino Transferase (AST) 16 U/L (13-40) Total Bilirubin 0.6 mg/dL (0.2-1.0) Urinalysis Test 06/18/24 09:27 Urine Color Light-yellow (Yellow) Urine Clarity Clear (Clear) Urine pH 5.5 (5.0-9.0) Urine Specific [place] 1.011 (1.001-1.035) Urine Protein Negative (Negative) Urine Ketones Negative (Negative) Urine Blood Negative /uL (Negative) Urine Nitrite Negative (Negative) Urine Bilirubin Negative (Negative) Urine Urobilinogen Normal mg/dL (Negative) Urine Leukocyte Esterase Negative /uL (Negative) Urine RBC 1 /hpf (0 - 4) Urine Microscopic WBC 1 /HPF (0-5) Urine Squamous Epithelial Cells Few /hpf (<5) Urine Bacteria None seen /hpf (None Seen) Urine Glucose Normal mg/dL (Normal) Microbiology Microbiology Date/Time Source Procedure Growth Status 06/18/24 09:27 Voided Urine Urine Culture - Final Complete Assessment/Plan Assessment/Plan Right ureteral stone Right ureteroscopy/pyeloscopy, laser lithotripsy with CVAC system Intractable abdominal pain status post procedure DC Home, Patient has Cipro at home Plan discussed with: Patient My Orders Orders - WILLY SHORT MD Procedure Category Date Status Time Discontinue Lucero YOLANDE 06/21/24 In Process Catheter 13:27 Discharge DISCHARGE 06/21/24 Verified 15:56 Date of Service: June 21, 2024 Billing Provider: WILLY SHORT MD Common Visit Codes: [id number] INP/OBS CARE(HIGH) WILLY SHORT MD June 21, 2024 15:58
[2024-06-21] MEDS: ONDANSETRON ODT 4 MG TAB PO ONE (17:58)
== END 2024-06-21 19:10 | disposition home or self-care (01) | DRG 693 ==
LOC: SUR 09:56 → OVERFLOW 17:15 → WEST WING 18:51
PROVIDERS: ADMIT Internal Medicine; ATTEND Internal Medicine
PROC: BT1D1ZZ Fluoroscopy of Right Kidney, Ureter and Bladder using Low Osmolar Contrast (ICD-10-PCS; 2024-06-20)
PROC: 0TC08ZZ Extirpation of Matter from Right Kidney, Via Natural or Artificial Opening Endoscopic (ICD-10-PCS; principal; 2024-06-20 11:39)
DX: N20.2 Calculus of kidney with calculus of ureter (principal); J96.01 Acute respiratory failure with hypoxia; I10 Essential (primary) hypertension; J45.909 Unspecified asthma, uncomplicated; Z88.1 Allergy status to other antibiotic agents; Z88.3 Allergy status to other anti-infective agents; Z79.899 Other long term (current) drug therapy
CPT/HCPCS: 36415; 74018; 76000; 76775; 80053; 81001; 82360; 85025; 85610; 85730; 87086; 94640; G0378; J0131; J1100; J2250; J2405; J2704; Q0162

== ENCOUNTER → 2024-06-28 | Day surgery (SDC) | payer OTHER ==
[~2024-06-28] VITALS: Ht 157.5 cm; Wt 90.7 kg
[~2024-06-28] MED LIST changes: +SODIUM CHLORIDE LOCK 10 ML ONE
[2024-06-28] MEDS: LIDOCAINE VISCOUS 2% 15ML UD ONE (09:44)
[2024-06-28] MEDS: MIDAZOLAM HCL 5 MG/ML-1ML VIAL ONE (09:45)
[2024-06-28] MEDS: fentaNYL CITRATE 100 MCG/2 ML VL ONE (09:45)
[2024-06-28] MEDS: diphenhdrAMINE HCL 50 MG/1 ML VL ONE (09:45)
[2024-06-28 10:00] VITALS: TEMP 98.2; O2SAT 100
--- NOTE | 2024-06-28 10:04 | DVHOP2 ---
Operative Report DATE OF OPERATION: 06/28/24 PROCEDURE: Upper Endoscopy with biopsy. PREOPERATIVE INDICATION: The patient is a 68 -year-old female undergoing endoscopy for chronic GERD and history of Barretts POSTOPERATIVE DIAGNOSES: 1. 2-3 cm sliding-type hiatal hernia with long segment patches of healing Barretts esophagus extending into the distal 10-12 cm of the esophagus from which biopsies were obtained 2. Mild gastritis 3. Moderate amount of milky bile noted in the duodenal bulb and postbulbar area otherwise normal examination up to 3rd part of the duodenum PROCEDURE PERFORMED BY: Jalil Wynn GI NURSE: Romy SCOPE: Olympus videoendoscope. ASA CLASS: 3. PREOPERATIVE MEDICATIONS: Versed 3 mg, Fentanyl 75 mcg, Benadryl 50 mg I administered moderate sedation throughout this _8_ minutes procedure. An independent trained observer pushed medications at my direction, and monitored the patient's level of consciousness and physiological status throughout. PROCEDURE IN DETAIL: After obtaining an informed consent, the patient was placed on left lateral decubitus position. The patient was then sedated with the above medications. A bite block was placed between her teeth. The endoscope was then passed through the oropharynx, into the esophagus, and through the stomach and pylorus up to the second and third part of the duodenum. The endoscope was then withdrawn. The 2nd and 3rd part of the duodenum and the duodenal bulb were normal. Patient was noted to have milky bile or chyle The pre-pyloric area and antrum showed mild gastritis. On retroflexion the fundus and cardia were normal. The endoscope was then withdrawn into the distal esophagus where she had a 2-3 cm sliding-type hiatal hernia with irregular squamocolumnar junction Patient has a long segment Barretts esophagus which was patchy and healing and extending into the distal 10 -12 cm of the esophagus from which multiple biopsies were obtained The proximal esophagus and oropharynx were otherwise unremarkable. The patient tolerated the procedure well without difficulty. COMPLICATIONS : None SPECIMENS: Duodenal biopsies Gastric biopsies Esophageal biopsies DISPOSITION: Stable D/C to home PLAN: 1. Await for biopsy result 2. Will place pt on Protonix 40 mg bid 3. Carafate 1 g p.o. twice a day 4. Lifestyle and dietary modifications for GERD 5. Resume GI soft diet advance as tolerated 6. Outpatient follow up with me in 4-6 weeks to review results and discuss further management JALIL WYNN MD June 28, 2024 10:04
[2024-06-28 10:45] VITALS: BP 124/69; PULSE 71; RESP 13; O2SAT 97
== END | disposition home or self-care (01) ==
LOC: GI 08:09
PROVIDERS: ATTEND Internal Medicine Gastroenterology
DX: K21.00 Gastro-esophageal reflux disease with esophagitis, without bleeding (principal); K22.70 Barrett's esophagus without dysplasia; K44.9 Diaphragmatic hernia without obstruction or gangrene; K29.50 Unspecified chronic gastritis without bleeding; I10 Essential (primary) hypertension; Z79.899 Other long term (current) drug therapy; Z98.890 Other specified postprocedural states
CPT/HCPCS: 43239; 88305; 88312; 88342; J1200; J2250; J3010; J7030; 99152

== ENCOUNTER 2024-09-11 07:34 | Outpatient (CLI) | payer OTHER ==
[~2024-09-11 07:34] MED LIST changes: -SODIUM CHLORIDE LOCK 10 ML ONE
[2024-09-11 08:23] LABS: Hematocrit 40.8 % (36.0-46.0); Hemoglobin 13.6 g/dL (12.2-16.2); Mean Corpuscular Hemoglobin 30.2 pg (28.0-32.0); Mean Corpuscular Volume 90.9 fL (80.0-100.0); Nucleated Red Blood Cells % 0.0 %
[2024-09-11 08:38] LABS: Alanine Aminotransferase 15 U/L (7-40); Albumin 4.2 g/dL (3.2-4.8); Alkaline Phosphatase 109 U/L (46-116); Anion Gap 7 (5-15); BUN/Creatinine Ratio 20.3 (10.0-20.0); Bilirubin, Total 0.6 mg/dL (0.2-1.0); Blood Urea Nitrogen 14 mg/dL (9-23); Calcium 9.3 mg/dL (8.7-10.4); Carbon Dioxide 28 mmol/L (20-31); Glucose 101 mg/dL (74-106); Total Protein 6.5 g/dL (5.7-8.2)
[2024-09-11 08:39] LABS: Chloride 111 mmol/L (98-107); Potassium 5.3 mmol/L (3.5-5.1); Sodium 146 mmol/L (136-145)
== END 2024-09-11 17:00 | disposition home or self-care (01) ==
LOC: LAB 07:34
PROVIDERS: ATTEND Internal Medicine Rheumatology
DX: K50.919 Crohn's disease, unspecified, with unspecified complications (principal); Z79.899 Other long term (current) drug therapy
CPT/HCPCS: 36415; 80053; 85025; 85652; 86141

== ENCOUNTER 2024-09-11 07:47 | Outpatient (CLI) | payer OTHER ==
--- NOTE | 2024-09-18 16:35 | DVH ---
Procedure: NM NM THYROID IMAG UPTAKE 6 24 HR Exam Date: 09/11/2024 08:05 AM Reason for study/Clinical History: HYPERTHYROIDISM Comparison Study: None I-123 Thyroid [Uptake and] Scan TECHNIQUE: The patient ingested a capsule containing 270 uCi of Iodine-123. Uptake in the neck and thigh was me asured at 4 and 24 hours after ingestion. Images of the thyroid in multiple projections were obtai noemi at 4 hours. FINDINGS: There is normal symmetric appearance of the thyroid gland and homogeneous uptake of radioiodine. Radioiodine uptake at 4 hours is 19.4% (normal is 0-15%). The 24-hour uptake is 10% (normal is 10-35% ). IMPRESSION: Slightly elevated uptake of radiotracer at 6 hours @19.4%. This is nonspecific. Normal uptake at 12:00 p.m..
== END 2024-09-11 17:00 | disposition home or self-care (01) ==
LOC: XY 07:47 → XYW 17:00
PROVIDERS: ATTEND Internal Medicine Endocrinology, Diabetes & Metabolism
DX: E03.9 Hypothyroidism, unspecified (principal)
CPT/HCPCS: 78014; A9516

== ENCOUNTER 2024-11-07 10:41 | Outpatient (CLI) | payer OTHER ==
[2024-11-07 11:15] LABS: Hematocrit 41.1 % (36.0-46.0); Hemoglobin 14.0 g/dL (12.2-16.2); Mean Corpuscular Hemoglobin 30.6 pg (28.0-32.0); Mean Corpuscular Volume 89.7 fL (80.0-100.0); Nucleated Red Blood Cells % 0.1 %
[2024-11-07 11:43] LABS: Alanine Aminotransferase 15 U/L (7-40); Albumin 4.2 g/dL (3.2-4.8); Anion Gap 11 (5-15); BUN/Creatinine Ratio 10.7 (10.0-20.0); Calcium 9.3 mg/dL (8.7-10.4); Carbon Dioxide 27 mmol/L (20-31); Chloride 106 mmol/L (98-107); Potassium 3.8 mmol/L (3.5-5.1); Sodium 144 mmol/L (136-145); Total Protein 7.4 g/dL (5.7-8.2)
[2024-11-07 11:44] LABS: Bilirubin, Total 0.7 mg/dL (0.2-1.0)
[2024-11-07 11:45] LABS: Free T3 3.26 pg/mL (2.3-4.2); Free T4 (Free Thyroxine) 1.62 ng/dL (0.89-1.76)
[2024-11-07 11:49] LABS: Alkaline Phosphatase 126 U/L (46-116); Blood Urea Nitrogen 8 mg/dL (9-23)
[2024-11-07 12:08] LABS: Glucose 95 mg/dL (74-106)
== END 2024-11-07 17:00 | disposition home or self-care (01) ==
LOC: LAB 10:41
PROVIDERS: ATTEND Internal Medicine Endocrinology, Diabetes & Metabolism
DX: E05.90 Thyrotoxicosis, unspecified without thyrotoxic crisis or storm (principal)
CPT/HCPCS: 36415; 80053; 84439; 84443; 84480; 84481; 85025

== ENCOUNTER → 2024-11-08 | Outpatient (CLI) | payer OTHER ==
[2024-11-08 09:46] LABS: Hematocrit 40.0 % (36.0-46.0); Hemoglobin 13.4 g/dL (12.2-16.2); Mean Corpuscular Hemoglobin 30.3 pg (28.0-32.0); Mean Corpuscular Volume 90.6 fL (80.0-100.0); Nucleated Red Blood Cells % 0.1 %
[2024-11-08 10:26] LABS: Urine Protein, UAD Negative (Negative); Urine WBC Clumps PRESENT /hpf (None Seen)
[2024-11-08 10:30] LABS: Alanine Aminotransferase 14 U/L (7-40); Anion Gap 10 (5-15); Calcium 9.0 mg/dL (8.7-10.4); Carbon Dioxide 27 mmol/L (20-31); Chloride 107 mmol/L (98-107); Potassium 4.1 mmol/L (3.5-5.1); Sodium 144 mmol/L (136-145)
[2024-11-08 10:32] LABS: Albumin 4.0 g/dL (3.2-4.8)
[2024-11-08 10:33] LABS: BUN/Creatinine Ratio 13.0 (10.0-20.0); Blood Urea Nitrogen 9 mg/dL (9-23); Glucose 92 mg/dL (74-106); Triglycerides 87 mg/dL (< 150)
[2024-11-08 10:34] LABS: Total Protein 6.9 g/dL (5.7-8.2)
[2024-11-08 10:35] LABS: Bilirubin, Total 0.6 mg/dL (0.2-1.0); Cholesterol 131 mg/dL (< 200); HDL Cholesterol 58 mg/dL (40-59)
[2024-11-08 10:45] LABS: Alkaline Phosphatase 121 U/L (46-116)
== END | disposition home or self-care (01) ==
LOC: LAB 09:19
PROVIDERS: ATTEND Internal Medicine
DX: I13.0 Hypertensive heart and chronic kidney disease with heart failure and stage 1 through stage 4 chronic kidney disease, or unspecified chronic kidney disease (principal); I50.9 Heart failure, unspecified; N18.9 Chronic kidney disease, unspecified; E05.90 Thyrotoxicosis, unspecified without thyrotoxic crisis or storm; R74.8 Abnormal levels of other serum enzymes; Z00.01 Encounter for general adult medical examination with abnormal findings; Z13.1 Encounter for screening for diabetes mellitus
CPT/HCPCS: 36415; 80053; 80061; 81001; 83036; 84439; 84443; 85025

== ENCOUNTER 2025-01-28 11:15 | Outpatient (CLI) | payer OTHER ==
[2025-01-28 11:58] LABS: Free T4 (Free Thyroxine) 1.47 ng/dL (0.89-1.76)
== END 2025-01-28 17:00 | disposition home or self-care (01) ==
LOC: LAB 11:15
PROVIDERS: ATTEND Internal Medicine
DX: E05.90 Thyrotoxicosis, unspecified without thyrotoxic crisis or storm (principal)
CPT/HCPCS: 36415; 84439; 84443; 84445; 84480